=== PATIENT | female | born 1990 | race Caucasian/White ===

== ENCOUNTER 2017-01-05 20:50 | Day surgery (SDC) | payer OTHER ==
[2017-01-05 21:38] VITALS: BP 123/66; TEMP 97.9; BMI 46.3
[2017-01-05] MEDS ORDERED: Promethazine HCl 25 MG/ML VIAL IM PRN (21:56)
--- NOTE | 2017-01-06 00:14 | PRG ---
DATE OF SERVICE: 01/05/2017 TIME OF SERVICE: 2015 hours. PRESENTING COMPLAINT: Contractions, nausea, lower back pain at 38 weeks gestation. HISTORY OF PRESENT ILLNESS: Ms. Chatman is a 26-year-old 4, para 1 at 38 weeks gestation, wh o sees Dr. Thor Betts at [facility]'s [place]. She reports contractions. Denies rupture of membranes. Denies vaginal bleeding. Reports active fetus with somewhat decreased activity today. She reports that she has some mild lower back pain and had one episode of nausea and vomiting on the way up to labor and delivery. OB AND INSPECTOR BICYCLE HISTORY: Miscarriage x2, x1. PAST MEDICAL HISTORY: Significant for depression and morbid obesity. PAST SURGICAL HISTORY: Left knee tendon repair, arm surgery, and . SOCIAL HISTORY: The patient reports chewing tobacco use. ALLERGIES: DURICEF. MEDICATIONS: vitamins. OB LABS: O negative, antibody negative, Pap negative, rubella immune, VDRL nonreactive, hepatitis B, GC chlamydia negative, group B strep negative. PHYSICAL EXAMINATION: GENERAL: Morbidly obese white female, in no acute distress. VITAL SIGNS: Temperature 98.2, respirations 18, blood pressure 122/72. LUNGS: Clear to auscultation bilaterally. HEART: Regular rate and rhythm. She has no CVA tenderness. ABDOMEN: Soft and nontender, without rebound or guarding very large pendulous abdomen. PELVIC: Vulva is without lesions. Vagina is without discharge. Cervix was fingertip to one long an d high by nurse exam. EXTREMITIES: Without clubbing, cyanosis, or edema. heart rate was extraordinarily difficult to obtain due to the patient's morbidly obese abdomen. However, the nurse was able to keep heart rate continuously in place for approximately 10 min utes. It was reactive heart rate tracing, 130-140 baseline, positive accelerations, no decels, category 1 tracing. Tocometer revealed contractions approximately every 10-15 minutes. TREATMENT: The patient received Phenergan 25 mg IM x1 and was encouraged to increase p.o. hydration at home and to keep scheduled appointment including scheduled repeat in 7 days.
== END 2017-01-05 22:30 | disposition home or self-care (01) ==
LOC: L&D/OP 20:50
PROVIDERS: ATTEND Obstetrics & Gynecology
DX: O47.1 False labor at or after 37 completed weeks of gestation (principal); O99.213 Obesity complicating pregnancy, third trimester; E66.01 Morbid (severe) obesity due to excess calories; Z68.42 Body mass index [BMI] 45.0-49.9, adult; Z88.1 Allergy status to other antibiotic agents; Z91.018 Allergy to other foods; Z79.899 Other long term (current) drug therapy; Z98.891 History of uterine scar from previous surgery; Z3A.38 38 weeks gestation of pregnancy; Z87.891 Personal history of nicotine dependence
CPT/HCPCS: 96372; J2550

== ENCOUNTER 2017-01-12 05:31 | Inpatient (IN) | payer OTHER ==
--- NOTE | 2017-01-11 13:46 | PDOC.LDHP ---
Labor and Delivery H&P Chief complaint: scheduled section HPI: PT is here for scheduled repeat CS at 39 weeks. Current gestational age (weeks): 39 Due date: 01/18/17 Dating criteria: first trimester ultrasound Grav: 2 Para: 1 OB History Details: CS for NRFHT Current complications: none, other Abnormal US findings: No Past Medical History: morbid obesity Current medications: pre- vitamins Previous surgical history: low tranverse CS, other (knee surgery) Allergies/Adverse Reactions: Allergies Allergy/AdvReac Type Severity Reaction Status Date / Time coconut Allergy Severe Anaphylaxis Verified 01/05/17 21:24 tomato Allergy Severe Anaphylaxis Verified 01/05/17 21:24 cefadroxil Allergy Intermediate Rash Verified 12/18/16 16:23 Social history: tobacco use (chews tobacco, former smoker) - OB Labs Blood type: O RH: negative Antibody Screen: negative HIV: negative RPR: negative HEPSAg: negative 1 hour GCT: positive 3 hour GTT: negative GBS: negative Rubella: non-immune - Assessment L&D Assessment: scheduled repeat section - Plan Plan: admit to L&D, informed consent obtained, anesthesia consult for pain management
[2017-01-12] MEDS ORDERED: Promethazine HCl 25 MG/ML VIAL IM PRN ×3 (06:14→11:48)
[2017-01-12] MEDS ORDERED: Ondansetron HCl/PF 4 MG/2 ML Vial IVP PRN ×3 (06:14→11:48)
[2017-01-12] MEDS ORDERED: Bicitra 30 ML UDCUP PO SCH (06:14)
[2017-01-12] MEDS ORDERED: Gentamicin 120 MG/100 ML BAG IVPB SCH (06:14)
[2017-01-12 06:24] VITALS: BMI 47.1
[2017-01-12] MEDS ORDERED: Clindamycin/D5W 900 MG in Premix Bag 1 BAG IVPB SCH (06:30)
[2017-01-12 06:43] LABS: Hematocrit 29.5 % (36.0-47.0); Mean Platelet Volume 7.7 fL (7.4-10.4); Red Blood Cell (RBC) Count 4.08 mill/uL (4.20-5.40); White Blood Cell (WBC) Count 9.9 thou/uL (4.8-10.8)
[2017-01-12] MEDS ORDERED: Dexamethasone 4 mg/ml Vial ONE (07:19)
[2017-01-12] MEDS ORDERED: PHENYLEPHRINE-NS 100 MCG/ML 10 ML SYRINGE ONE ×2 (07:19→15:21)
[2017-01-12] MEDS ORDERED: Ketorolac Tromethamine 30 MG/ML VIAL ONE ×2 (07:19→15:21)
[2017-01-12] MEDS ORDERED: Oxytocin 10 UNITS/ML VIAL ONE (07:19)
[2017-01-12] MEDS ORDERED: ePHEDrine/0.9% NaCl/PF SYRINGE 50 mg/10 ml ONE (07:19)
[2017-01-12] MEDS ORDERED: Ondansetron HCl/PF 4 MG/2 ML Vial ONE ×2 (07:19→15:21)
[2017-01-12] MEDS ORDERED: Morphine PF 1 MG/ML SYR ONE (07:20)
[2017-01-12] MEDS: Lactated Ringer's 1,000 ML IV SCH ×2 (07:27→07:28)
[2017-01-12] MEDS ORDERED: Ropivacaine 0.2% 550 ML 750 ML NERVE BLCK SCH (07:45)
[2017-01-12] MEDS ORDERED: Lidocaine 2% PF 5 ML VIAL ONE (07:55)
[2017-01-12] MEDS ORDERED: Ropivacaine HCl/PF 750 ML in Premix Bag 1 BAG NERVE BLCK SCH (08:00)
[2017-01-12] MEDS ORDERED: Bupivacaine 0.25% HCL 30 ML VIAL ONE (08:21)
--- NOTE | 2017-01-12 08:50 | PDOC.OPDEL ---
OB Operative/Delivery Note Delivery Dr/Surgeon: Alpesh Assist: Winnie Pre-Delivery Diagnosis: scheduled section Procedure/Post Delivery Dx: repeat low transverse CS Weeks gestation: 39 - Findings A Sex: male Weight: 8 lb 8 oz - 1 min: 8 - 5 min: 9 - Additional Findings/Plan Placenta delivered: manual removal findings: low transverse hysterotomy without extension, normal uterus, normal tubes, normal ovaries Estimated blood loss: 600ml Compilations/Other Findings: placement of OnQ and Preveena Post delivery plan: routine recovery
[2017-01-12] MEDS ORDERED: Eucerin (Mineral Oil/Petrolatum,White) 30 gm Jar TOP PRN (09:44)
[2017-01-12] MEDS ORDERED: Naloxone HCl 0.4 mg/ml Vial IV PRN (09:44)
[2017-01-12] MEDS ORDERED: HYDROmorphone 2 MG/ML VIAL SLOW IVP PRN (09:44)
[2017-01-12] MEDS ORDERED: diphenhydrAMINE 50 MG/ML VIAL IVP PRN (09:44)
[2017-01-12] MEDS ORDERED: Meperidine HCl/PF 25 MG/ML VIAL SLOW IVP PRN (09:44)
[2017-01-12] MEDS ORDERED: Naloxone HCl 0.4 mg/ml Vial IVP PRN (09:44)
[2017-01-12] MEDS ORDERED: Communication Order-Pharmacy FS SCH (09:45)
--- NOTE | 2017-01-12 10:32 | OP ---
DATE OF PROCEDURE: 01/12/2017 PREOPERATIVE DIAGNOSES: 1. A 26-year-old G2, P1 at 31 weeks and 1 day. 2. Previous section, declines trial of labor. 3. Morbid obesity. POSTOPERATIVE DIAGNOSIS: G2, P2 delivered, status post repeat section. PROCEDURES PERFORMED: Repeat low transverse section, placement of ON-Q pump catheters and P revena incision dressing. SURGEON: Thor Betts D.O. PROFESSOR OF BIOCHEMISTRY: Radha Zhou M.D. ANESTHESIA: korin Jose. ESTIMATED BLOOD LOSS: 600 mL URINE OUTPUT: 170 mL COMPLICATIONS: None. INTRAOPERATIVE FINDINGS: 1. Morbid obesity. 2. Male , Apgars 8 and 9, weight 8 pounds 8 ounces to nursery. 3. Low transverse hysterotomy without extension. 4. Normal-appearing uterus, tubes, and ovaries bilaterally. 5. Surgical sites hemostatic. DESCRIPTION OF PROCEDURE: The patient was taken back to the OR with IV fluids running. Once she was in the OR, spinal anesthesia was placed. The patient was then placed in dorsal supine position with a left lateral tilt. Cortes catheter was placed using sterile technique and the abdomen was prepped and draped in normal fashion for section. Of note, the patient's pannus was elevated with t ape to assist in retraction prior to the abdominal prep. The surgeons were scrubbed in. The abdomen was tested and anesthesia was found to be adequate. A Pfannenstiel skin incision was made with the scalpel. The skin incision was carried down through the subcutaneous tissue until the fascia was pablo ched. Once the fascia was reached, it was incised in the midline and extended superior laterally usi ng curved Coffman scissors. Tarik clamps were placed on the superior border of the fascia, which was s harply and bluntly dissected off the rectus abdominis muscles. In similar fashion, Tarik clamps wer e placed at the inferior border of the fascia, which was dissected down towards the pubic symphysis. There was no adhesive disease noted. The peritoneum was bluntly entered and stretched laterally. A adrianna O retractor was placed into the peritoneal cavity for retraction, visualization and protection of the wound. A bladder flap was created using Metzenbaum scissors and the bladder was dissected hudson y from the planned hysterotomy site. A low transverse hysterotomy was made with the scalpel. Hyster otomy was bluntly entered and stretched superolaterally using Nelson maneuver. Clear fluid was noted. The infant was delivered through the hysterotomy without difficulty. The nose and mouth were suctio stefan. The cord was doubly clamped and cut, and the infant was handed off to special care nurses in at [facility]. Cord blood was collected. The placenta was delivered. Uterus was exteriorized, massaged to firm, and cleared of clot and debris with a clean, dry sponge. The hysterotomy was inspected with no extensions noted. The hysterotomy was closed with Monocryl suture in a running locked fashion. Once the hysterotomy was closed, it was irrigated as well as the pericolic gutters and suctioned dry and then inspected again with no areas of bleeding noted. The Chente O retractor was removed from th e abdominal cavity. The peritoneum was reapproximated with chromic suture. Next, the 2 ON-Q pump ca theters were placed through the skin, subcutaneous tissue and fascia and directed down towards the co rners of the incision. The catheters were placed between the rectus muscle and fascia. The fascia w as then closed with PDS suture from corner to corner and tied separately in the midline. The cathete rs were primed with Marcaine and fastened to the skin. The subcutaneous tissue was reapproximated wi plain gut suture. Any small areas of bleeding in the subcutaneous tissue were controlled with Bov ie cauterization. The skin was closed with 4-0 Monocryl. A Prevena prophylactic wound dressing was placed over the incision after the ON-Q catheter. The tips were dressed with Tegaderm. The Prevena was noted to be functioning properly at the end of the case. The uterus was massaged and noted to be firm. The patient was then cleaned, dried, taken to the recovery room in good condition.
[2017-01-12] MEDS ORDERED: diphenhydrAMINE 25 MG CAP PO PRN (11:48)
[2017-01-12] MEDS ORDERED: LR w/ Pitocin 40 units/1000 ML BAG IV SCH (11:48)
[2017-01-12] MEDS ORDERED: Measles/Mumps/Rubella 10 MCG/0.5 ML VIAL SC ONE (11:48)
[2017-01-12] MEDS ORDERED: Lactated Ringer's 1,000 ML IV SCH (11:48)
[2017-01-12] MEDS ORDERED: Bisacodyl 10 MG SUPP PR PRN (11:48)
[2017-01-12] MEDS ORDERED: Lanolin Ointment 7 GM TUBE TOP PRN (11:48)
[2017-01-12] MEDS ORDERED: Simethicone Chewable 80 MG TAB PO PRN (11:48)
[2017-01-12] MEDS: Prenatal Vitamin 1 TAB PO SCH (13:49)
[2017-01-12] MEDS: Docusate Calcium (SURFAK) 240 MG CAP PO SCH ×2 (13:49→22:05)
[2017-01-12] MEDS: Ferrous Sulfate 325 MG TAB PO SCH ×2 (13:49→22:23)
[2017-01-12] MEDS ORDERED: Dexamethasone 20 MG/5 ML VIAL ONE (15:21)
[2017-01-12] MEDS: Ibuprofen 800 MG TAB PO SCH ×2 (16:01→22:04)
[2017-01-12] MEDS ORDERED: Meperidine HCl/PF 25 MG/ML VIAL IM PRN (21:45)
[2017-01-13] MEDS: Acetaminophen/Codeine 30-300mg Tablet PO PRN ×3 (00:45→17:39)
[2017-01-13] MEDS ORDERED: Sodium Chloride 0.9% 10 ML ONE ×2 (01:02→05:51)
[2017-01-13] MEDS: Ibuprofen 800 MG TAB PO SCH ×3 (06:00→21:50)
[2017-01-13 06:23] LABS: Hematocrit 24.5 % (36.0-47.0); Mean Platelet Volume 7.6 fL (7.4-10.4); Red Blood Cell (RBC) Count 3.38 mill/uL (4.20-5.40)
--- NOTE | 2017-01-13 07:51 | PDOC.PP ---
Post Progress Note Post Day #: 1 Subjective: Reports pain controlled and feeling much better than last c/s. PO intake tolerated: yes Flatus: yes Ambulation: yes Vital Signs (12 hours) Temp Pulse Resp BP Pulse Ox 01/13/17 04:25 98.1 F 66 20 01/13/17 00:20 98.5 F 64 20 111/66 98 Weight Weight 319 lb - Physical Examination General: NAD Respiratory: non-labored breathing Abdominal: lochia, no distention, appropriately TTP Fundus firm & at: U-3 Extremities: negative homans (B) Skin: CS incision dry & intact, no rash Neurological: no gross focal deficits Psychiatric: A&Ox3, normal affect Result Diagrams: 01/13/17 05:38 Additional Labs: Post Labs Blood Type O NEGATIVE 01/12/17 06:29 Hep Bs Antigen Non-Reactive S/CO (NonReactive) 01/12/17 06:29 (1) Status post repeat low transverse section Code(s): Z98.891 - HISTORY OF UTERINE SCAR FROM PREVIOUS SURGERY Status: Acute (2) Morbid obesity Code(s): E66.01 - MORBID (SEVERE) OBESITY DUE TO EXCESS CALORIES Status: Acute - Assessment/Plan Cortes d/c'd. Tolerating regular diet. Continue routine postop care.
[2017-01-13] MEDS: Prenatal Vitamin 1 TAB PO SCH (08:42)
[2017-01-13] MEDS: Docusate Calcium (SURFAK) 240 MG CAP PO SCH ×2 (08:43→21:50)
[2017-01-13] MEDS: Ferrous Sulfate 325 MG TAB PO SCH ×2 (08:44→21:50)
[2017-01-14] MEDS: Ibuprofen 800 MG TAB PO SCH ×3 (06:08→22:00)
[2017-01-14] MEDS: Acetaminophen/Codeine 30-300mg Tablet PO PRN ×4 (06:10→22:00)
--- NOTE | 2017-01-14 06:13 | PDOC.PP ---
Post Progress Note Post Day #: 2 Subjective: Has abd pa8in this am. OnQ pump was leaking yesterday. PO intake tolerated: yes Flatus: yes Ambulation: yes Vital Signs (12 hours) Temp Pulse Resp BP 01/13/17 23:40 98.3 F 78 18 130/62 01/13/17 19:45 98.3 F 86 18 136/63 Weight Weight 319 lb - Physical Examination General: NAD Abdominal: no distention, appropriately TTP Deviation from normal: Wound vac in use Neurological: no gross focal deficits Psychiatric: A&Ox3 Result Diagrams: 01/13/17 05:38 Additional Labs: Post Labs Blood Type O NEGATIVE 01/12/17 06:29 Hep Bs Antigen Non-Reactive S/CO (NonReactive) 01/12/17 06:29 (1) Morbid obesity Code(s): E66.01 - MORBID (SEVERE) OBESITY DUE TO EXCESS CALORIES Status: Acute (2) Status post repeat low transverse section Code(s): Z98.891 - HISTORY OF UTERINE SCAR FROM PREVIOUS SURGERY Status: Acute - Assessment/Plan Postop day 2: 1. On Q pump leaking but dressing of the catheters is on the wound vac dressing..so cannot remove 2. I will see if wound care can see her today to help separate the dressing to remove the leaking catheters without disruption of wound vac 3. ambulate 4. SCDs in bed 5. Keep in house todaiy to monitor due to BMI co-morbidity
[2017-01-14] MEDS: Prenatal Vitamin 1 TAB PO SCH (09:31)
[2017-01-14] MEDS: Ferrous Sulfate 325 MG TAB PO SCH ×2 (09:31→22:00)
[2017-01-14] MEDS: Docusate Calcium (SURFAK) 240 MG CAP PO SCH ×2 (09:32→21:30)
[2017-01-15] MEDS: Ibuprofen 800 MG TAB PO SCH ×2 (05:27→14:30)
[2017-01-15 08:10] VITALS: BP 137/67; TEMP 98.1
[2017-01-15] MEDS: Prenatal Vitamin 1 TAB PO SCH (09:16)
[2017-01-15] MEDS: Ferrous Sulfate 325 MG TAB PO SCH (09:16)
[2017-01-15] MEDS: Docusate Calcium (SURFAK) 240 MG CAP PO SCH (09:16)
--- NOTE | 2017-01-15 09:27 | PDOC.PP ---
Post Progress Note Post Day #: 3 Subjective: doing well, no concerns, ambulating, adriana reg diet, pain controlled PO intake tolerated: yes Flatus: yes Ambulation: yes Vital Signs (12 hours) Temp Pulse Resp BP 01/15/17 08:09 98.1 F 76 20 137/67 Weight Weight 319 lb - Physical Examination General: NAD Respiratory: non-labored breathing Abdominal: no distention (NTTP) Fundus firm & at: below umb Extremities: negative homans (B) Skin: no rash (preveen on) Neurological: no gross focal deficits Psychiatric: A&Ox3, normal affect Result Diagrams: 01/13/17 05:38 Additional Labs: Post Labs Blood Type O NEGATIVE 01/12/17 06:29 Hep Bs Antigen Non-Reactive S/CO (NonReactive) 01/12/17 06:29 (1) Morbid obesity Code(s): E66.01 - MORBID (SEVERE) OBESITY DUE TO EXCESS CALORIES Status: Acute (2) Status post repeat low transverse section Code(s): Z98.891 - HISTORY OF UTERINE SCAR FROM PREVIOUS SURGERY Status: Acute - Assessment/Plan POD3 doing well, plan to DC home today. OnQ removed yesterday, Preveena on. FU this week for incision check and removal of Preveena in office.
[2017-01-15] MEDS: Acetaminophen/Codeine 30-300mg Tablet PO PRN (11:18)
== END 2017-01-15 15:30 | disposition home or self-care (01) | DRG 765 ==
LOC: L&D 05:31 → 3SW 11:12
PROVIDERS: ADMIT Obstetrics & Gynecology; ATTEND Obstetrics & Gynecology
PROC: 10D00Z1 Extraction of Products of Conception, Low, Open Approach (ICD-10-PCS; principal; 2017-01-12)
PROC: 0W9J00Z Drainage of Pelvic Cavity with Drainage Device, Open Approach (ICD-10-PCS; 2017-01-12)
DX: O99.214 Obesity complicating childbirth (principal); Z68.42 Body mass index [BMI] 45.0-49.9, adult; E66.01 Morbid (severe) obesity due to excess calories; Z37.0 Single live birth; Z3A.39 39 weeks gestation of pregnancy; O99.334 Smoking (tobacco) complicating childbirth; F17.220 Nicotine dependence, chewing tobacco, uncomplicated
CPT/HCPCS: 36415; 85027; 85461; 86780; 86850; 86900; 86901; 87340; 90384; 90707; 96372; A4216; J0131; J1100; J1580; J1885; J2001; J2274; J2405; J2590; J2795; J3490; S0020

== ENCOUNTER 2017-05-15 11:18 | Emergency (ER) | payer OTHER ==
[2017-05-15 12:15] LABS: #Eosinphils 0.2 thou/uL (0.0-0.7); #Lymphocytes 3.1 thou/uL (1.20-3.40); #Monocytes 0.7 thou/uL (0.11-0.59); #Neutrophils 4.8 thou/uL (1.40-6.50); %Basophils 0.5 % (0.0-1.0); %Eosinophils 2.7 % (0.0-10.0); %Lymphocytes 35.3 % (21.0-51.0); %Monocytes 7.5 % (0.0-10.0); Anisocytosis SLIGHT = 6-15 cells (100X) (0-5/hpf); Hemoglobin 11.8 g/dL (12.0-16.0); Hypochromia SLIGHT = 6-15 cells (100X) (0-5/hpf); MDiff Complete? YES; Mean Corpuscular HGB CONC 30.6 g/dL (32.0-36.0); Mean Corpuscular Hemoglobin 21.6 pg (27.0-31.0); Mean Corpuscular Volume 70.6 fl (81.0-99.0); Mean Platelet Volume 8.1 fL (7.4-10.4); Microcytosis SLIGHT = 6-15 cells (100X) (0-5/hpf); Platelet Count 397 thou/uL (130-400); RBC Distribution Width 15.6 % (11.5-14.5); Red Blood Cell (RBC) Count 5.45 mill/uL (4.20-5.40); White Blood Cell (WBC) Count 8.9 thou/uL (4.8-10.8)
[2017-05-15 12:21] LABS: BHCG - Serum Negative (NEGATIVE); Pregs Control Background? CLEAR/WHITE (CLR/WHITE); Pregs Control Bar Appear? YES (CONTROL BAR)
[2017-05-15 12:25] LABS: ALT (SGPT) 59 U/L (8-55); AST (SGOT) 33 U/L (5-34); Albumin 3.9 g/dL (3.5-5.0); Alkaline Phosphatase 77 U/L (40-150); Anion Gap 11 mmol/L (10-20); BUN (Urea Nitrogen) 7 mg/dL (7.0-18.7); Bilirubin, Total 0.4 mg/dL (0.2-1.2); Calc. Creatinine Clearance 0 mL/min (70-130); Calcium 9.1 mg/dL (7.8-10.44); Carbon Dioxide 21 mmol/L (22-29); Chloride 110 mmol/L (98-107); Estimated GFR-MDRD Greater than 90; Globulin 3.5 g/dL (2.4-3.5); Glucose 95 mg/dL (70-105); Lipase 20 U/L (8-78); Potassium 4.3 mmol/L (3.5-5.1); Protein, Total 7.4 g/dL (6.0-8.3); Sodium 138 mmol/L (136-145)
== END 2017-05-15 14:10 | disposition left against medical advice (07) ==
LOC: ERS 11:18
DX: Z53.21 Procedure and treatment not carried out due to patient leaving prior to being seen by health care provider (principal)
CPT/HCPCS: 36415; 80053; 82150; 83690; 84703; 85025

== ENCOUNTER 2017-05-15 18:21 | Emergency (ER) | payer OTHER ==
[2017-05-15] MEDS ORDERED: Morphine 4 MG/ML VIAL ONE (18:57)
[2017-05-15] MEDS ORDERED: Ondansetron HCl/PF 4 MG/2 ML Vial ONE (18:57)
[2017-05-15 18:59] LABS: #Basophils 0.1 thou/uL (0.0-0.2); #Eosinphils 0.4 thou/uL (0.0-0.7); #Lymphocytes 3.2 thou/uL (1.20-3.40); #Monocytes 0.8 thou/uL (0.11-0.59); #Neutrophils 5.4 thou/uL (1.40-6.50); %Basophils 0.8 % (0.0-1.0); %Eosinophils 3.7 % (0.0-10.0); %Lymphocytes 32.6 % (21.0-51.0); %Monocytes 7.9 % (0.0-10.0); Hemoglobin 11.3 g/dL (12.0-16.0); Mean Corpuscular HGB CONC 32.1 g/dL (32.0-36.0); Mean Corpuscular Hemoglobin 22.3 pg (27.0-31.0); Mean Corpuscular Volume 69.5 fl (81.0-99.0); Mean Platelet Volume 8.3 fL (7.4-10.4); Platelet Count 381 thou/uL (130-400); RBC Distribution Width 15.3 % (11.5-14.5); Red Blood Cell (RBC) Count 5.07 mill/uL (4.20-5.40); White Blood Cell (WBC) Count 9.8 thou/uL (4.8-10.8)
[2017-05-15 19:10] LABS: BHCG - Serum Negative (NEGATIVE); Pregs Control Background? CLEAR/WHITE (CLR/WHITE); Pregs Control Bar Appear? YES (CONTROL BAR)
[2017-05-15 19:19] LABS: ALT (SGPT) 57 U/L (8-55); AST (SGOT) 29 U/L (5-34); Albumin 3.8 g/dL (3.5-5.0); Alkaline Phosphatase 80 U/L (40-150); Anion Gap 11 mmol/L (10-20); BUN (Urea Nitrogen) 9 mg/dL (7.0-18.7); Bilirubin, Total 0.4 mg/dL (0.2-1.2); Calc. Creatinine Clearance 0 mL/min (70-130); Calcium 9.1 mg/dL (7.8-10.44); Carbon Dioxide 22 mmol/L (22-29); Chloride 111 mmol/L (98-107); Estimated GFR-MDRD 87; Globulin 3.4 g/dL (2.4-3.5); Glucose 96 mg/dL (70-105); Lipase 33 U/L (8-78); Potassium 3.8 mmol/L (3.5-5.1); Protein, Total 7.2 g/dL (6.0-8.3); Sodium 140 mmol/L (136-145)
[2017-05-15 20:27] LABS: Bilirubin Negative (Negative); Blood, Urine Moderate (Negative); Clarity CLEAR (Clear); Glucose, Urine (Dipstick) Negative (Negative); Leukocyte Small (Negative); Nitrite Negative (Negative); Protein, Urine (Dipstick) Negative (Neg-Trace); Specific Gravity, Urine 1.025 (1.002-1.036); pH, Urine 6.5 (5.0-9.0)
[2017-05-15 20:30] LABS: Bacteria/HPF 2+ HPF (None Seen); Hyaline Casts/LPF NONE SEEN LPF (0-3 Hyaline); RBC/HPF 0-3 HPF (0-3); Squamous Epithelial 0-3 HPF (0-3); WBC/HPF 0-3 HPF (0-3)
--- NOTE | 2017-05-15 20:39 | ULT ---
RIGHT UPPER QUADRANT ULTRASOUND: 05/15/17 HISTORY: Abdominal pain. Images of the gallbladder show numerous echogenic gallstones. Gallbladder wall thickness is normal. C ommon duct is upper normal caliber measured at 6 mm. The liver is unremarkable. The pancreas is obscured. Right kidney is unremarkable. Technologist marta cifuentes a negative Gomez's sign. IMPRESSION: Cholelithiasis. POS: [facility]
== END 2017-05-15 21:01 | disposition home or self-care (01) ==
LOC: ERS 18:21
DX: K80.20 Calculus of gallbladder without cholecystitis without obstruction (principal); N39.0 Urinary tract infection, site not specified; F32.9 Major depressive disorder, single episode, unspecified; F41.9 Anxiety disorder, unspecified; F17.220 Nicotine dependence, chewing tobacco, uncomplicated
CPT/HCPCS: 36415; 76705; 80053; 81003; 81015; 82150; 83690; 84703; 85025; 96361; 96374; 96375; J2270; J2405

== ENCOUNTER 2017-05-29 01:36 | Emergency (ER) | payer OTHER ==
--- NOTE | 2017-05-29 08:29 | RAD ---
PA AND LATERAL CHEST: History: Chest pain after trauma. FINDINGS: Heart size and mediastinum are within normal limits. The lungs are clear of infiltrates. No significa nt bony findings. IMPRESSION: No active intrathoracic disease. POS: [facility]
== END 2017-05-29 03:25 | disposition home or self-care (01) ==
LOC: ERS 01:36
DX: S20.211A Contusion of right front wall of thorax, initial encounter (principal); F41.9 Anxiety disorder, unspecified; F32.9 Major depressive disorder, single episode, unspecified; F17.220 Nicotine dependence, chewing tobacco, uncomplicated; Z71.6 Tobacco abuse counseling; Y04.0XXA Assault by unarmed brawl or fight, initial encounter
CPT/HCPCS: 71046; 99406

== ENCOUNTER 2017-06-07 21:19 | Emergency (ER) | payer OTHER ==
[2017-06-08 01:50] LABS: #Eosinphils 0.2 thou/uL (0.0-0.7); #Lymphocytes 3.4 thou/uL (1.20-3.40); #Monocytes 0.6 thou/uL (0.11-0.59); %Basophils 0.2 % (0.0-1.0); %Lymphocytes 37.2 % (21.0-51.0); %Monocytes 6.5 % (0.0-10.0); %Neutrophils 54.1 % (42.0-75.0); Hemoglobin 10.9 g/dL (12.0-16.0); Mean Corpuscular HGB CONC 33.1 g/dL (32.0-36.0); Mean Corpuscular Hemoglobin 22.3 pg (27.0-31.0); Mean Corpuscular Volume 67.2 fl (81.0-99.0); Mean Platelet Volume 7.4 fL (7.4-10.4); Platelet Count 405 thou/uL (130-400); RBC Distribution Width 15.1 % (11.5-14.5); Red Blood Cell (RBC) Count 4.91 mill/uL (4.20-5.40); White Blood Cell (WBC) Count 9.2 thou/uL (4.8-10.8)
[2017-06-08 01:57] LABS: BHCG - Serum Negative (NEGATIVE); Pregs Control Background? CLEAR/WHITE (CLR/WHITE); Pregs Control Bar Appear? YES (CONTROL BAR)
[2017-06-08] MEDS ORDERED: Acetaminophen 500 MG TAB ONE (02:05)
[2017-06-08 02:07] LABS: ALT (SGPT) 93 U/L (8-55); AST (SGOT) 41 U/L (5-34); Albumin 3.9 g/dL (3.5-5.0); Alkaline Phosphatase 89 U/L (40-150); Anion Gap 13 mmol/L (10-20); BUN (Urea Nitrogen) 9 mg/dL (7.0-18.7); Bilirubin, Total 0.4 mg/dL (0.2-1.2); Calc. Creatinine Clearance 0 mL/min (70-130); Calcium 9.4 mg/dL (7.8-10.44); Carbon Dioxide 23 mmol/L (22-29); Chloride 108 mmol/L (98-107); Estimated GFR-MDRD 90; Globulin 3.7 g/dL (2.4-3.5); Glucose 85 mg/dL (70-105); Potassium 3.9 mmol/L (3.5-5.1); Protein, Total 7.6 g/dL (6.0-8.3); Sodium 140 mmol/L (136-145)
[2017-06-08] MEDS ORDERED: Lidocaine 1% (PF) 30 ML VIAL ONE (02:47)
--- NOTE | 2017-06-08 09:14 | CT ---
PRELIMINARY REPORT/[facility]/EMERGENTY AFTER-HOURS PROCEDURE CT Head Without Intravenous Contrast EXAM DATE/TIME: Exam ordered 06/08/2017 1:45 AM CLINICAL HISTORY: 26 years old, female; Pain; Headache; Headache not specified; Patient HX: F 26 presents to ed with fr ontal DEL ANGEL that began with dizziness and nausea last night. Denies any trauma. Exacerbated by light. De nies any familial HX of aneurisms. Current chewing tobacco user. Took a tylenol machine captain, has had slight improvement since onset. Reports possibility of , had son on feb 01, has had some s potting since then and has been on bc, however she has not had a complete period. Last Tylenol was at 1900. TECHNIQUE: Axial computed tomography images of the head/brain without intravenous contrast. COMPARISON: No relevant prior studies available. FINDINGS: Brain: Unremarkable. No hemorrhage. No significant white matter disease. No edema. Ventricles: Unremarkable. No ventriculomegaly. Bones/joints: Unremarkable. No acute fracture. Soft tissues: Unremarkable. Sinuses: Unremarkable as visualized. No acute sinusitis. Mastoid air cells: Unremarkable as visualized. No mastoid effusion. IMPRESSION: Normal head/brain CT. Thank you for allowing us to participate in the care of your patient. Dictated and Authenticated by: Los Carrasco MD 06/08/2017 2:29 AM Central Time ([place] & [place]) FINAL REPORT BRAIN CT WITHOUT IV CONTRAST: EMERGENT AFTER HOURS EXAM TIME: 1:46 a.m. DATE: 06/08/17. FINDINGS: No focal mass or midline shift. No evidence of hemorrhage. IMPRESSION: No acute intracranial process. No mass or bleed. POS: [facility]
--- NOTE | 2017-06-08 09:34 | CT ---
PRELIMINARY REPORT/[facility]/EMERGENTY AFTER-HOURS PROCEDURE CT Angiography Head With Intravenous Contrast CLINICAL HISTORY: 26 years old, female; Pain; Headache; Patient HX: M 49 presents to ed with cp and dizziness that bega n yesterday morning. Pt reports that he had some difficulty speaking in the evening alongside dizzine ss and feelings of instability. Pt states that his last mi presented with similar symptoms 2 years ag o [place]. Speech and stability have improved, currently on anti-coags. Had 2 stents placed 2 ye ars ago. Apr 06 pt had stent replaced due to 100% occlusion. Nkma TECHNIQUE: Axial computed tomographic angiography images of the head with intravenous contrast using CT angiogra phy protocol. MIP reconstructed images were created and reviewed. Coronal and sagittal reformatted im ages were created and reviewed. COMPARISON: CT Brain WO Con 2017-06-08 01:45 FINDINGS: Right internal carotid artery: No acute findings. Intracranial segment is patent with no significant stenosis. No aneurysm. Right anterior cerebral artery: Unremarkable. No occlusion or significant stenosis. No aneurysm. Right middle cerebral artery: Unremarkable. No occlusion or significant stenosis. No aneurysm. Right posterior cerebral artery: Unremarkable. No occlusion or significant stenosis. No aneurysm. Right vertebral artery: Unremarkable as visualized. Left internal carotid artery: No acute findings. Intracranial segment is patent with no significant s tenosis. No aneurysm. Left anterior cerebral artery: Unremarkable. No occlusion or significant stenosis. No aneurysm. Left middle cerebral artery: Unremarkable. No occlusion or significant stenosis. No aneurysm. Left posterior cerebral artery: Unremarkable. No occlusion or significant stenosis. No aneurysm. Left vertebral artery: Unremarkable as visualized. Basilar artery: Unremarkable. No occlusion or significant stenosis. No aneurysm. IMPRESSION: Normal head CTA. Thank you for allowing us to participate in the care of your patient. Dictated and Authenticated by: Gonzalez Vivar MD 06/08/2017 5:30 AM Central Time ([place] & [place]) FINAL REPORT CTA BRAIN: Date: 06/08/17 HISTORY: 26-year-old female with history of headaches. Presents to the ER with chest pain and dizziness, which began yesterday morning. TECHNIQUE: Contrast enhanced CTA of the intracranial structures performed. 2D and 3D reconstructed images perfor med on an independent 3D workstation. FINDINGS: This is the final report. Preliminary exam was performed by [facility]. CTA brain demonstrates no evidence of occlusion seen. The visualized portions of the internal carotid arteries are unremarkable. The SHAKA, MCA, and EPIC CUPID ANALYST vessels are patent. Visualized portions of the dist al vertebral arteries are patent. The basilar artery and posterior circulation is unremarkable. IMPRESSION: Unremarkable intracranial CTA. POS: [facility]
== END 2017-06-08 05:45 | disposition home or self-care (01) ==
LOC: ERS 21:19
DX: R51 Headache (principal); D64.9 Anemia, unspecified; F41.9 Anxiety disorder, unspecified; F32.9 Major depressive disorder, single episode, unspecified; F17.220 Nicotine dependence, chewing tobacco, uncomplicated
CPT/HCPCS: 36415; 70450; 70496; 80053; 84703; 85025; 93005; J2001

== ENCOUNTER 2017-06-09 14:42 | Inpatient (IN) | payer OTHER ==
[2017-06-09 16:34] LABS: #Eosinphils 0.2 thou/uL (0.0-0.7); #Monocytes 0.7 thou/uL (0.11-0.59); #Neutrophils 4.9 thou/uL (1.40-6.50); %Basophils 0.2 % (0.0-1.0); %Eosinophils 1.9 % (0.0-10.0); %Lymphocytes 34.2 % (21.0-51.0); %Monocytes 7.6 % (0.0-10.0); %Neutrophils 56.1 % (42.0-75.0); Hemoglobin 11.1 g/dL (12.0-16.0); Mean Corpuscular HGB CONC 32.3 g/dL (32.0-36.0); Mean Corpuscular Hemoglobin 21.6 pg (27.0-31.0); Mean Platelet Volume 7.2 fL (7.4-10.4); Platelet Count 408 thou/uL (130-400); RBC Distribution Width 15.3 % (11.5-14.5); Red Blood Cell (RBC) Count 5.15 mill/uL (4.20-5.40); White Blood Cell (WBC) Count 8.7 thou/uL (4.8-10.8)
[2017-06-09] MEDS ORDERED: Ketorolac Tromethamine 30 MG/ML VIAL ONE ×2 (16:35→19:28)
[2017-06-09] MEDS ORDERED: Metoclopramide HCl 10 MG/2 ML VIAL ONE (16:35)
[2017-06-09] MEDS ORDERED: diphenhydrAMINE 50 MG/ML VIAL ONE (16:35)
[2017-06-09 16:55] LABS: ALT (SGPT) 76 U/L (8-55); AST (SGOT) 33 U/L (5-34); Alkaline Phosphatase 92 U/L (40-150); Anion Gap 12 mmol/L (10-20); BUN (Urea Nitrogen) 11 mg/dL (7.0-18.7); Bilirubin, Total 0.5 mg/dL (0.2-1.2); Calc. Creatinine Clearance 0 mL/min (70-130); Calcium 9.7 mg/dL (7.8-10.44); Carbon Dioxide 23 mmol/L (22-29); Chloride 108 mmol/L (98-107); Estimated GFR-MDRD 87; Globulin 3.7 g/dL (2.4-3.5); Glucose 84 mg/dL (70-105); Magnesium 1.9 mg/dL (1.6-2.6); Potassium 4.4 mmol/L (3.5-5.1); Protein, Total 7.7 g/dL (6.0-8.3); Sodium 139 mmol/L (136-145)
[2017-06-09 17:00] LABS: CKMB 0.3 ng/mL (0-6.6); Troponin I Less than 0.010 ng/mL (< 0.028)
[2017-06-09 18:37] LABS: Bilirubin Negative (Negative); Blood, Urine Large (Negative); Clarity CLEAR (Clear); Glucose, Urine (Dipstick) Negative (Negative); Leukocyte Negative (Negative); Nitrite Negative (Negative); Protein, Urine (Dipstick) Negative (Neg-Trace); Urobilinogen 0.2 mg/dL (0.2-1.0)
[2017-06-09 18:41] LABS: Bacteria/HPF None Seen HPF (None Seen); Hyaline Casts/LPF 0-3 HYALINE CAST LPF (0-3 Hyaline); Pathc Cast-AUWi Flag 0.43 (0-2.49); RBC/HPF GREATER THAN 50-TNTC HPF (0-3); Squamous Epithelial 0-3 HPF (0-3); WBC/HPF 0-3 HPF (0-3)
[2017-06-09] MEDS ORDERED: Acetaminophen 500 MG TAB ONE (19:28)
[2017-06-09] MEDS ORDERED: Fentanyl 100 MCG/2 ML VIAL ONE (21:22)
[2017-06-09 21:51] LABS: Tube # 2; Unspun CSF Color RED (Colorless)
[2017-06-09 21:52] LABS: Color Of CSF Supernatant COLORLESS (Colorless)
[2017-06-09 22:31] LABS: CSF Source CSF; Clarity Cloudy/Turbid (Clear); Tube # 4
[2017-06-09 22:37] LABS: WBC/NonHematics Count - Manual 34 /cumm (0-5)
[2017-06-09 22:43] LABS: CSF Source CSF
[2017-06-09 22:44] LABS: Clarity Cloudy/Turbid (Clear); Tube # 1
[2017-06-09 22:47] LABS: WBC/NonHematics Count - Manual 9 /cumm (0-5)
[2017-06-09 22:52] LABS: CSF, Glucose 53 mg/dl (40-70)
[2017-06-09 22:57] LABS: CSF, Protein 70 mg/dL (15-40)
[2017-06-10 01:34] LABS: Lymphocytes 40 %; Segmented Neutrophils 60 %
[2017-06-10] MEDS ORDERED: AcetaZOLAMIDE 250 MG TAB PO SCH ×2 (01:45→09:00)
[2017-06-10] MEDS ORDERED: Acyclovir Sodium 1,000 MG in Sodium Chloride 0.9% 250 ML 250 ML IVPB SCH (01:45)
[2017-06-10] MEDS ORDERED: Meropenem 2 GM in Sodium Chloride 0.9% 100 ML IVPB SCH (01:45)
[2017-06-10 03:22] VITALS: BMI 43.5
[2017-06-10] MEDS ORDERED: HYDROcodone/Acetaminophen 5/325 mg Tablet PO PRN ×3 (03:22→16:31)
[2017-06-10] MEDS ORDERED: Acetaminophen 325 MG TAB PO PRN ×2 (03:22→16:31)
--- NOTE | 2017-06-10 04:54 | HP ---
PRIMARY CARE PHYSICIAN: Patient has no PCP. CHIEF COMPLAINT: Headache. HISTORY OF PRESENT ILLNESS: Patient is a 26-year-old female who initially presented to the hospital a couple of days ago with complaints of headache. Patient underwent a CT head, which indicated no ac cabazon intracranial process was noted. She also had a CT angio, which indicated no acute abnormalities, normal. She was sent home; however, she presents back to the hospital with complaints of headache. Initially during her last visit, an LP was attempted, however, due to her body habitus and was unsuc cessful. At this time, when she presented to the hospital, she did undergo an LP. Patient currently denies any neck discomfort, however, she has neck pain after the LP. She denies any fevers or chill s, any nausea, vomiting, or diarrhea. She denies any photophobia either. She just said she has a si gnificant headache around her frontal area. Patient also takes control medication. She does n ot recall the name of her medication, but she does take control pills. PAST MEDICAL HISTORY: History of gallstones. PAST SURGICAL HISTORY: She had x2. She has had orthopedic surgery of her right arm, left knee. SOCIAL HISTORY: She denies any smoking; however, she chews tobacco or dips tobacco and drinks alcoho l socially. MEDICATIONS: She takes control. ALLERGIES: She is allergic to ADHESIVE BANDAGE, CEFADROXIL, COCONUT, and TOMATO. PHYSICAL EXAMINATION: VITAL SIGNS: In the ER, temperature is 98.6, 97% on room air, 68, 18, 110/74. GENERAL: Patient is awake, alert, oriented x3, does not appear in any distress. Patient is morbidly obese. HEENT: Normocephalic, atraumatic. No lymphadenopathy noted. NECK: No neck tenderness noted. Patient had good range of motion of her neck. She is complaining o f her LP site. CARDIOVASCULAR: S1, S2 present. No murmurs, rubs, or gallops. LUNGS: Clear to auscultation, rhonchi, or wheezes noted. ABDOMEN: Obese. Bowel sounds are present x2. No pain upon palpation. EXTREMITIES: Lower extremity, no edema. Pulses are present. LABORATORY DATA: WBCs of 8.7, hemoglobin of 11.1, hematocrit of 34.5, platelets of 404, as I mention ed her WBC is normal. Chemistry: Sodium of 139, potassium of 4.4, BUN of 11, creatinine 0.80. Her ALT is mildly elevated at 76, AST is normal. Troponin x1 is negative. Her test was negati ve. She did have an LP, which indicated tooth #1 was red, cloudy, turbid. WBCs were 9, 60% of that were neutrophils, lymphocytes were 40%. The second teeth #4 had 34 WBCs and had no neutrophils. Pro tein was mildly elevated. Glucose was normal. ASSESSMENT AND PLAN: Patient is a 26-year-old female who comes to the hospital with complaints of he adache. 1. Headache. This could be secondary to possible venous thrombosis versus meningitis; however, unli hardeep versus pseudotumor cerebri. We will start patient on some empiric antibiotics given the fact th at she did have 60 neutrophils, which seemed to be a little bit elevated. Neurology has been consult ed. Per ER physician, no papilledema was noted. This CSF opening pressure was elevated. We will ge t an MRV possible in a.m. to rule out cerebral venous thrombosis or probably on Sunday. 2. Morbid obesity. Patient educated on weight loss and exercise. 3. Chewing tobacco. Advise patient against chewing or dipping tobacco. 4. Deep venous thrombosis prophylaxis. We will put patient on sequential compression devices.
[2017-06-10 05:32] LABS: HBSAg Index 0.22 S/CO (0-0.99); Hep A IgM AB Non-Reactive (NonReactive); Hep A IgM S/CO 0.09 S/CO (0-0.79); Hep B Surf Ag Non-Reactive S/CO (NonReactive); Hep C IgG Ab Non-Reactive (NonReactive); Hep C Index 0.25 S/CO (0-0.79); Hepatitis B Core IGM Abs Non-Reactive (NonReactive)
[2017-06-10] MEDS: Sodium Chloride 0.45% 1,000 ML IV SCH ×2 (06:12→11:18)
[2017-06-10] MEDS: Meropenem 2 GM in Sodium Chloride 0.9% 100 ML IVPB SCH ×3 (06:13→20:31)
[2017-06-10] MEDS ORDERED: Vancomycin HCl 750 MG in Sodium Chloride 0.9% 250 ML 250 ML IVPB SCH (09:00)
[2017-06-10] MEDS ORDERED: SODIUM CHLORIDE 0.9% IVPB SCH (10:00)
[2017-06-10] MEDS ORDERED: ACYCLOVIR SODIUM IVPB SCH (10:00)
[2017-06-10] MEDS: Acyclovir Sodium 660 MG in Sodium Chloride 0.9% 100 ML IVPB SCH ×2 (11:20→20:30)
[2017-06-10] MEDS ORDERED: ALPRAZolam 1 MG TAB PO SCH (22:15)
--- NOTE | 2017-06-10 23:57 | RAD ---
PORTABLE CHEST ONE VIEW: Date: 06-10-17 Time: 11:09 p.m. History: Central line placement. FINDINGS: There is a right internal jugular central line and venous catheter with tip in the projection of the SVC. The heart size is normal. The lungs are expanded without focal areas of consolidation, pneumotho rax or pleural effusions. IMPRESSION: No acute process. POS: [facility]
--- NOTE | 2017-06-11 00:30 | PDOC.EVN ---
Event Note - Event Note Event Note: I was present for adn supervised a Right IJ CVC placement. See Resident note for details. No Complications. CXR confirmed placement and absence of pneumothorax.
[2017-06-11] MEDS: Acyclovir Sodium 660 MG in Sodium Chloride 0.9% 100 ML IVPB SCH ×3 (01:42→18:14)
[2017-06-11] MEDS: Meropenem 2 GM in Sodium Chloride 0.9% 100 ML IVPB SCH ×3 (05:42→21:08)
[2017-06-11 07:57] LABS: #Eosinphils 0.3 thou/uL (0.0-0.7); #Monocytes 0.5 thou/uL (0.11-0.59); #Neutrophils 4.5 thou/uL (1.40-6.50); %Basophils 0.2 % (0.0-1.0); %Eosinophils 4.1 % (0.0-10.0); %Lymphocytes 35.9 % (21.0-51.0); %Monocytes 5.6 % (0.0-10.0); %Neutrophils 54.2 % (42.0-75.0); Hemoglobin 11.1 g/dL (12.0-16.0); Mean Corpuscular HGB CONC 32.6 g/dL (32.0-36.0); Mean Corpuscular Hemoglobin 22.1 pg (27.0-31.0); Mean Corpuscular Volume 67.6 fl (81.0-99.0); Mean Platelet Volume 7.6 fL (7.4-10.4); Platelet Count 396 thou/uL (130-400); RBC Distribution Width 15.5 % (11.5-14.5); Red Blood Cell (RBC) Count 5.04 mill/uL (4.20-5.40); White Blood Cell (WBC) Count 8.2 thou/uL (4.8-10.8)
--- NOTE | 2017-06-11 08:15 | PDOC.EVN ---
Event Note - Event Note Event Note: Date: 06/10/17 Time: 23:00 Indication: Intravenous access Resident: Krzysztof Rose Attending: Eron A time-out was completed verifying correct patient, procedure, site, positioning , and special equipment if applicable. The patient was placed in a dependent position appropriate for central line placement based on the vein to be cannulated. The patients right neck was prepped and draped in sterile fashion. 1 % Lidocaine was used to anesthetize the surrounding skin area. A triple lumen 9- Telugu Cordis catheter was introduced into the the internal jugular using the Seldinger technique and under ultrasound guidance. The catheter was threaded smoothly over the guide wire and appropriate blood return was obtained. Each lumen of the catheter was evacuated of air and flushed with sterile saline. The catheter was then sutured in place to the skin and a sterile dressing applied. Perfusion to the extremity distal to the point of catheter insertion was checked and found to be adequate. Dr. Littlejohn was present for the entire procedure. Estimated Blood Loss: 10 ml The patient tolerated the procedure well and there were no complications. Post Op CXR shows appropriate positioning and no pneumothorax.
[2017-06-11 08:18] LABS: Anion Gap 8 mmol/L (10-20); BUN (Urea Nitrogen) 10 mg/dL (7.0-18.7); Calc. Creatinine Clearance 233 mL/min (70-130); Carbon Dioxide 18 mmol/L (22-29); Chloride 113 mmol/L (98-107); Estimated GFR-MDRD 90; Glucose 75 mg/dL (70-105); Potassium 3.9 mmol/L (3.5-5.1); Sodium 135 mmol/L (136-145)
[2017-06-11 08:22] LABS: Vancomycin, Trough 30.7 ug/mL
--- NOTE | 2017-06-11 11:15 | PDOC.PN ---
- Subjective Encounter Start Date: 06/11/17 Encounter Start Time: 11:13 Patient seen and examined, continues to have headaches in the left frontal lobe and frontal lobe area. No other issues, all questions answered. - Objective Resuscitation Status: Resuscitation Status FULL:Full Resuscitation Vital Signs & Weight: Vital Signs (12 hours) Temp Pulse Resp BP Pulse Ox 06/11/17 08:00 98.8 F 69 18 98 06/11/17 07:27 98.8 F 69 18 105/70 98 Weight Weight 295 lb Result Diagrams: 06/11/17 07:45 06/11/17 07:45 Phys Exam - Physical Examination Constitutional: NAD HEENT: PERRLA, moist MMs, sclera anicteric Neck: no nodes, no JVD, supple Respiratory: no wheezing, no rales, no rhonchi Cardiovascular: RRR, no significant murmur, no rub Gastrointestinal: soft, non-tender, no distention Musculoskeletal: no edema, pulses present Neurological: non-focal, normal sensation Dx/Plan (1) Headache Code(s): R51 - HEADACHE Status: Acute (2) Meningitis Code(s): G03.9 - MENINGITIS, UNSPECIFIED Status: Acute (3) Morbid obesity Code(s): E66.01 - MORBID (SEVERE) OBESITY DUE TO EXCESS CALORIES Status: Acute - Plan * patient on abx, merrem + vanc, vanc to be held given high levels, will repeat random level in AM and dose vanc according to level * blood cultures positive for gram +, on vanc, will repeat BCx in AM * neurology and neuroSx following, await input * continue current plan of care * case and plan d/w patient at length, she understands and agrees with above plan
[2017-06-11] MEDS: HYDROcodone/Acetaminophen 5/325 mg Tablet PO PRN (14:36)
--- NOTE | 2017-06-11 22:41 | CON ---
DATE OF CONSULTATION: 06/10/2017 CONSULTING PHYSICIAN: Hospital Service. IMPRESSION: 1. Probable migraine. 2. Questionable pseudotumor cerebri. PLAN: 1. Maxalt 10 mg as needed for headache. 2. Office followup. HISTORY OF PRESENT ILLNESS: Ms. Chatman is a 26-year-old obese young woman who had presented with co mplaints of headache over the last few days. Initially, the headache came on quite quickly and was a ssociated with light sensitivity, nausea, and dizziness, and came to the ER and was evaluated. She h ad a CT of the brain and CTA which were both unremarkable. She was treated and her headache resolved . She was told that if the headache came back, she would need to come back to the hospital. She cam e back in yesterday with recurrent headaches. She underwent a lumbar puncture, which reportedly show ed somewhat elevated opening pressure. Her CSF was consistent with a bloody tap. She was started on Diamox and her headache is diminished significantly. She reports a low-grade left frontal hea dache today. She is not having any vision disturbance. She reports having severe headaches when she was younger, often times incapacitated with pain and nausea. She had been headache free for s everal years prior to the onset of these. PAST HISTORY: Otherwise negative. ALLERGIES: None reported. SOCIAL HISTORY: No tobacco or alcohol use. FAMILY HISTORY: Negative for migraines. MEDICATIONS: None. REVIEW OF SYSTEMS: Otherwise negative. PHYSICAL EXAMINATION" GENERAL: She is an obese young woman, sitting up in bed, in no distress. VITAL SIGNS: Have been stable. She is afebrile. HEENT: Pupils are equal and reactive. Conjunctiva clear. NECK: Supple. NEUROLOGIC: She is alert and appropriate. Her speech is fluent and clear. Her exam is nonfocal. SUMMARY: This is a young woman with abrupt onset of headache with migrainous features, which would n ot be typical of pseudotumor. I will be happy to follow up with her as an outpatient to determine if there is any evidence of papilledema and need for continued treatment with Diamox. We would suggest giving her the Maxalt to use as needed for the time being.
--- NOTE | 2017-06-12 00:08 | PRG ---
DATE OF SERVICE: 06/10/2017 This is a 30 minutes initial hospital visit note in which 30 minutes were spent in review of the imag ing record, evaluation and examination of the patient, and formulation of plan. Greater than 50% vania e was spent in counseling on Cris Chatman. CHIEF COMPLAINT: Headache with chills and elevated white blood cell count and opening pressure on sp inal tap. HISTORY OF PRESENT ILLNESS: Ms. Chatman is a 26-year-old obese female. She has a 2-day history of h eadache, chills and photophobia. Head CT was done, which demonstrated no evidence of acute process a nd even her CT angiogram was negative for vascular abnormality. The lumbar puncture was also done, w hich demonstrated an elevated opening pressure by report of 35 and evidence of bloody CSF. It is unc lear to me whether this was a traumatic tap and it is my understanding that there was some difficulty getting an adequate sample given the patient's body habitus. She does have elevated white blood gui ls both on the Gram stain of her CSF and in the CSF assessment, and has been initiated on acyclovir a nd antibiotics. PHYSICAL EXAMINATION: On exam, the patient has mild nuchal rigidity and photophobia. She has a mild ly positive Brudzinski's sign, but negative Kernig's sign. She follows commands in all 4 extremities . She has intact vision to confrontation, and on evaluation by the Emergency Medicine Team, she had no evidence of papilledema. IMPRESSION AND PLAN: My suspicion here is not pseudotumor while she fits a body habitus her clinical presentation is more of one of meningitis. Given her cerebrospinal fluid finding, certainly the ope izaiah pressure can be elevated anyway in morbidly obese patients, but also in the presence of meningit is, typically patients with pseudotumor do not present like this patient has over the last couple day s. An MRI was attempted, but the patient did not fit in the scanner. I do not think it is necessary to pursue MRI. Frankly, I think the Diamox can be stopped as well. It is my suspicion for this pat ient is likely meningitis and she would best benefit from antibiotics and hydration, I discussed this with the patient. I do not think it is necessary to pursue MRI at this time. visual changes in which the patient denies more of an obvious clinical prodrome consistent with pseudotumor. I did not it is necessary to pursue neurosurgical followup. I would recommend continued treatment fo r meningitis. DIAGNOSES: 1. Concern of meningitis. 2. Obesity.
[2017-06-12] MEDS: Acyclovir Sodium 660 MG in Sodium Chloride 0.9% 100 ML IVPB SCH ×3 (02:14→18:26)
[2017-06-12] MEDS: Meropenem 2 GM in Sodium Chloride 0.9% 100 ML IVPB SCH ×3 (05:22→22:16)
[2017-06-12 06:55] LABS: Vancomycin, Random 3.8 ug/mL (See Comment)
[2017-06-12] MEDS: HYDROcodone/Acetaminophen 5/325 mg Tablet PO PRN ×2 (10:02→16:56)
--- NOTE | 2017-06-12 12:03 | PDOC.PN ---
- Subjective Encounter Start Date: 06/12/17 Encounter Start Time: 12:01 Patient seen and examined, stats she feels a bit better but not back to baseline. All questions answered, no family at bedside. - Objective Resuscitation Status: Resuscitation Status FULL:Full Resuscitation Vital Signs & Weight: Vital Signs (12 hours) Temp Pulse Resp BP BP Pulse Ox 06/12/17 11:00 98.6 F 72 14 128/82 99 06/12/17 07:22 98.5 F 63 18 93/63 100 06/12/17 07:09 98.9 F 65 20 06/12/17 04:00 98.9 F 65 20 106/75 99 Weight Weight 295 lb I&O: 06/11/17 06/12/17 06/13/17 06:59 06:59 06:59 Intake Total 2230 Balance 2230 Result Diagrams: 06/11/17 07:45 06/11/17 07:45 Phys Exam - Physical Examination Constitutional: NAD obease HEENT: PERRLA, moist MMs, sclera anicteric Neck: no nodes, no JVD, supple Respiratory: no wheezing, no rales, no rhonchi Cardiovascular: RRR, no significant murmur, no rub Gastrointestinal: soft, non-tender, no distention Musculoskeletal: no edema, pulses present Neurological: non-focal, normal sensation Psychiatric: normal affect, A&O x 3 Dx/Plan (1) Headache Code(s): R51 - HEADACHE Status: Acute (2) Meningitis Code(s): G03.9 - MENINGITIS, UNSPECIFIED Status: Acute (3) Morbid obesity Code(s): E66.01 - MORBID (SEVERE) OBESITY DUE TO EXCESS CALORIES Status: Acute - Plan * vanc level at 3 today, was 30 yesterday, will give a 1.5g IV x 1 dose today, repeat level in AM * cont current plan of care for now * gram positive on culture, C&S pending, cont abx broad spectrum * symptomatic improvement noted * neuro and neurosx following * case and plan d/w patient at length, she understands and agrees with this plan
[2017-06-12] MEDS ORDERED: Vancomycin HCl 1.5 GM in Sodium Chloride 0.9% 250 ML 300 ML IVPB SCH (12:30)
--- NOTE | 2017-06-12 14:16 | PQF ---
CLINICAL DOCUMENTATION IMPROVEMENT CLARIFICATION FORM: ICD-10 Updated PLEASE DO AN ADDENDUM TO THE PROGRESS NOTE WITH ANY DOCUMENTATION UPDATES OR ADDITIONS AND CARRY THROUGH TO DC SUMMARY. THANK YOU. DATE: 06/12/17 ATTN: Dr. Cervantes Please exercise your independent, professional judgment in responding to the clarification form. Clinical indicators are provided on the bottom of this form for your review Please check appropriate box(s): [ x ] Bacterial Meningitis [ x ] Acute [ ] Chronic [ x ] Specify organism (i.e. gram negative, staph, strep, e coli, etc.)___culture not grown yet, unknown [ ] Due to (please specify cause) [ ] Viral Meningitis- [ ] Acute [ ] Chronic [ ] Specify organism (i.e. adenovirus, enterovirus, measles, etc.) ___ [ ] Encephalitis [ ] Acute [ ] Chronic [ ] Other diagnosis [ ] Unable to determine In addition, please specify: Present on Admission (POA): [ ] Yes [ ] No [ ] Unable to determine For continuity of documentation, please document condition throughout progress notes and discharge summary. Thank You. CLINICAL INDICATORS - SIGNS / SYMPTOMS / LABS H&P: WBCS 9, 60% OF THAT WERE NEUTROPHILS, LYMPHOCYTES WERE 40% HEADACHE PN 06/11: MENINGITIS, UNSPECIFIED. ACUTE BLOOD CULTURES POSITIVE FOR GRAM + NEURO SURGEON PN 06/10: ON EXAM, PT HAS MILD NUCHAL RIGIDITY & PHOTOPHOBIA. MILDLY POSITIVE BRUDZINSKI'S SIGN, BUT NEGATIVE KERNIG'S SIGN. IT IS MY SUSPICION FOR THIS PT IS LIKELY MENINGITIS & SHE WOULD BEST BENEFIT FROM ANTIBIOTICS & HYDRATION RISKS: H&P: AGE 26 YO. HEADACHE. THE CSF OPENING PRESSURE WAS ELEVATED TREATMENTS: NEUROLOGY CONSULT CPOE 06/10: ACYCLOVIR SODIUM 660 MG IV CPOE 06/10: MEROPENEM 2 GM IV Q 8 HR CPOE 06/12: VANCOMYCIN 1.5GM IV NOW Thank you, Kenzie (This form is maintained as a part of the permanent medical record) 2015 [employer]. All Rights Reserved Kenzie Sylvester RN, BSN [email or web address] Office: [phone] [facility]
[2017-06-12] MEDS ORDERED: diphenhydrAMINE 25 MG CAP PO PRN (21:16)
[2017-06-13] MEDS: Acyclovir Sodium 660 MG in Sodium Chloride 0.9% 100 ML IVPB SCH ×2 (01:49→10:09)
[2017-06-13] MEDS: Meropenem 2 GM in Sodium Chloride 0.9% 100 ML IVPB SCH ×2 (05:36→15:12)
[2017-06-13] MEDS: HYDROcodone/Acetaminophen 5/325 mg Tablet PO PRN ×2 (10:11→15:13)
[2017-06-13 12:49] VITALS: BP 111/75; TEMP 98.1
--- NOTE | 2017-06-13 12:58 | CON ---
DATE OF CONSULTATION: 06/13/2017 CONSULTING PHYSICIAN: Dr. Kali Salazar CHIEF COMPLAINT: Vaginal bleeding. HISTORY OF PRESENT ILLNESS: This is a 26-year-old who is status post a C- section 5 months ago. She reports that she has been bleeding ever since and has been seen in the office for this. She was put on control pills which decreased her bleeding to spotting daily, but never stopped completely. When she was admitted to the hospital here, she stopped taking her control pills and started bleeding heavily requiring her to change the pad 3 times a day. She does have associated dull, constant lower abdominal pain, but does not feel that it is crampy. She was admitted for headache for which she is being treated. Other than her complaints associated with her admission, review of systems is negative for head, eyes, ears, nose, throat, cardiovascular, respiratory, GI, , neuro, psych, musculoskeletal, skin or constitutional symptoms other than mentioned above. PAST MEDICAL HISTORY: Obesity. PAST SURGICAL HISTORY: 1. x2. 2. Knee surgery. 3. Tooth extraction. 4. Arm surgery. SOCIAL HISTORY: Positive for dipping tobacco and social alcohol use. Negative for smoking or drug abuse. MEDICATIONS: control pills. ALLERGIES: CEFADROXIL causes a rash. FAMILY HISTORY: Denies any history of breast, ovary, uterine or colon cancer. PHYSICAL EXAMINATION: VITAL SIGNS: Blood pressure 113/70, pulse 75, respiratory rate 16, temperature 98.4, O2 saturation 99% on room air. GENERAL: Awake, alert, in no acute distress, appears comfortable. ABDOMEN: Obese, soft, minimally tender to palpation in the lower abdomen. No guarding or rebound. No masses palpable. Exam limited due to body habitus. PELVIC: Deferred at this time. EXTREMITIES: Mild pedal edema. ASSESSMENT AND PLAN: A 26-year-old , 5 months with vaginal bleeding. It sounds like this was fairly well controlled with her control pills and she is likely having a withdrawal bleed after stopping her control pills when she was admitted to the hospital. I will get a pelvic ultrasound, but would recommend restarting her control pills if there is no contraindication from her headache pathology. She may follow up outpatient at [facility]'s [place] where she is seen regularly for other control options if needed. Thank you very much for this consultation. I will follow up the pelvic ultrasound results and make recommendations if needed. Please let me know if you have any other questions. YAMILKA
--- NOTE | 2017-06-13 15:31 | ULT ---
PELVIC ULTRASOUND: (transabdominal, transvaginal, jennings scale, color flow, and spectral Doppler) HISTORY: Abnormal bleeding status post section 5 months ago. FINDINGS: The uterus measures 9.6 x 5.4 x 5 cm without focal mass or endometrial fluid. The endometrium measur es 5 mm in thickness. The right ovary is not visualized. The left ovary measures 3.1 x 2.3 x 2 cm. Flow is not demonstrat ed to the left ovary likely due to posterior location. No adnexal masses are identified. No free fl uid is seen. IMPRESSION: No definite evidence of mass. POS: [facility]
--- NOTE | 2017-06-13 16:13 | DIS ---
DATE OF ADMISSION: 06/10/2017 DATE OF DISCHARGE: 06/13/2017 PRIMARY CARE PHYSICIAN: None. DISCHARGE DIAGNOSES: 1. Nonbacterial meningitis, likely viral. 2. Intractable headache. 3. Menorrhagia. 4. Severe obesity. CONSULTATIONS: 1. Luz Elena Degroot with [facility], 06/13/2017. 2. Neurology, Dr. Jose Raul Harris, 06/11/2017. 3. Hola Gomez with Neurosurgery, 06/11/2017. PROCEDURES: Pelvic and transvaginal ultrasound on 06/13/2017, results currently pending. HISTORY AND PHYSICAL: Ms. Chatman is a 26-year-old female with history of severe obesity and gallsto kelly who presents to the emergency department for evaluation of headache. CT of the brain and CT angiogram were done in the emergency department were unremarkable and she was sent home. She returns for continued headache and even though her last LP was unsuccessful, they did reattempt. LP was significant for a white blood cell count as high as 34 with 60% neutrophils and 40% lymphocyt es, slightly elevated protein, normal glucose. We were subsequently called for admission for meningi tis. The patient was seen and examined by Dr. Avendaño and placed as an inpatient. She was started on empir ic antibiotics due to possible venous thrombosis. Neurology was consulted. The patient was seen by Dr. Harris who felt this was most likely migraine variant of a possible pseu dotumor cerebri. Neurosurgical consultation was requested. The patient was seen by Case Bishop and then by Hola Gomez who felt that was actually more menin gitic in nature and recommended treating with antibiotics and follow up. They plan no intervention. From 06/10/2017 to 06/11/2017, the patient's headache improved; by 06/12/2017, she was improved even more, but started developing some vaginal bleeding. On 06/13/2017, her headache had completely resol albert. The patient was seen by [facility] who recommended placing her back onto her normal oral contracept sridhar that are used to control her menorrhagia and otherwise cleared her for outpatient followup for r esults of her transvaginal ultrasound. Patient was discharged home in stable condition with outpatient followup. PHYSICAL EXAMINATION: The patient was seen and examined on the day of discharge. Discharge plan and disposition were discussed with the patient face to face at the bedside. DISCHARGE MEDICATIONS: Resume her regular oral contraceptives. DISCHARGE CONDITION: Stable. DISPOSITION: Discharged home via private vehicle. DISCHARGE DIET: Heart healthy, calorie-restricted diet recommended. DISCHARGE ACTIVITY: As tolerated. FOLLOWUP APPOINTMENTS 1. Establish with PCP. 2. Follow up with Dr. Degroot per her clinic schedule.
--- NOTE | 2017-06-14 11:05 | PQF ---
GORGE GEESOPHIA CHINO [id number] -[id number] CLINICAL DOCUMENTATION CLARIFICATION FORM: POST DISCHARGE Please exercise your independent, professional judgment in responding to the clarification form. Clinical indicators are provided on the bottom of this form for your review. Thank you. Please check appropriate box(s): Conflicting documentation was noted in the Medical Record, please clarify if patient is being treated/monitored for: [ x ] Viral Meningitis [ ] Bacterial Meningitis [ ] Other diagnosis [ ] Unable to determine In addition, please specify: Present on Admission (POA): [ x ] Yes [ ] No [ ] Unable to determine CLINICAL INDICATORS - SIGNS / SYMPTOMS/ LABS Discharge Summary 06/13/17 documents nonbacterial meningitis, likely viral. Query answered on 06/12/17 documents bacterial meningitis. RISK FACTORS Headache TREATMENT Vancomycin IV, Merrem - PN 06/11/17, CPOE Acyclovir 660mg IV06/10/17 (This form is maintained as a part of the permanent medical record) 2014 [employer] All Rights Reserved Donna Blair, CCS, [employer], CASC [email or web address]
== END 2017-06-13 16:37 | disposition home or self-care (01) | DRG 75 ==
LOC: ERS 14:42 → T4-A 06-10 02:06
PROVIDERS: ADMIT Internal Medicine; ATTEND Internal Medicine
PROC: 009U3ZX Drainage of Spinal Canal, Percutaneous Approach, Diagnostic (ICD-10-PCS; principal; 2017-06-10)
PROC: 05HM33Z Insertion of Infusion Device into Right Internal Jugular Vein, Percutaneous Approach (ICD-10-PCS; 2017-06-10)
DX: A87.9 Viral meningitis, unspecified (principal); Z68.41 Body mass index [BMI] 40.0-44.9, adult; E66.01 Morbid (severe) obesity due to excess calories; N92.0 Excessive and frequent menstruation with regular cycle; F17.220 Nicotine dependence, chewing tobacco, uncomplicated
CPT/HCPCS: 36415; 71045; 76856; 80048; 80053; 80074; 80202; 81003; 81015; 82553; 82945; 83735; 84157; 84484; 85025; 85060; 87040; 87070; 87086; 87149; 87205; 89051; 96365; 96366; 96367; 96368; 96375; 99406; A4216; J0133; J1200; J1885; J2185; J2765; J3010; J3370; J7050

== ENCOUNTER 2017-08-29 17:13 | Emergency (ER) | payer OTHER ==
--- NOTE | 2017-08-29 17:39 | RAD ---
TWO VIEWS OF THE CHEST: 08/29/17 COMPARISON: 05/29/17 HISTORY: Chest pain. FINDINGS: Two views of the chest show normal sized cardiomediastinal silhouette. There is no evidence of consol idation, mass, or pleural effusion. The bones are unremarkable. IMPRESSION: No evidence of acute cardiopulmonary disease. POS: [facility]
[2017-08-29 18:18] LABS: Hemoglobin 11.6 g/dL (12.0-16.0); Mean Corpuscular HGB CONC 33.2 g/dL (32.0-36.0); Mean Corpuscular Hemoglobin 22.4 pg (27.0-31.0); Platelet Count 350 thou/uL (130-400); RBC Distribution Width 15.2 % (11.5-14.5); Red Blood Cell (RBC) Count 5.17 mill/uL (4.20-5.40); White Blood Cell (WBC) Count 8.3 thou/uL (4.8-10.8)
[2017-08-29 18:37] LABS: ALT (SGPT) 26 U/L (8-55); AST (SGOT) 20 U/L (5-34); Albumin 4.1 g/dL (3.5-5.0); Alkaline Phosphatase 73 U/L (40-150); Anion Gap 11 mmol/L (10-20); BUN (Urea Nitrogen) 11 mg/dL (7.0-18.7); Bilirubin, Total 0.4 mg/dL (0.2-1.2); CK (CPK) 75 U/L (29-168); Calc. Creatinine Clearance 0 mL/min (70-130); Carbon Dioxide 21 mmol/L (22-29); Chloride 110 mmol/L (98-107); Estimated GFR-MDRD 89; Globulin 3.4 g/dL (2.4-3.5); Glucose 93 mg/dL (70-105); Lipase 34 U/L (8-78); Potassium 3.8 mmol/L (3.5-5.1); Protein, Total 7.5 g/dL (6.0-8.3); Sodium 138 mmol/L (136-145)
[2017-08-29 18:42] LABS: #Eosinphils 0.2 thou/uL (0.0-0.7); #Lymphocytes 3.2 thou/uL (1.20-3.40); #Monocytes 0.7 thou/uL (0.11-0.59); #Neutrophils 4.2 thou/uL (1.40-6.50); %Basophils 0.3 % (0.0-1.0); %Eosinophils 2.4 % (0.0-10.0); %Lymphocytes 38.7 % (21.0-51.0); %Monocytes 7.8 % (0.0-10.0); %Neutrophils 50.8 % (42.0-75.0); Anisocytosis SLIGHT = 6-15 cells (100X) (0-5/hpf); CKMB 0.3 ng/mL (0-6.6); MDiff Complete? YES; Mean Corpuscular Volume 67.4 fL (78.0-98.0); Microcytosis SLIGHT = 6-15 cells (100X) (0-5/hpf); Troponin I Less than 0.010 ng/mL (< 0.028)
[2017-08-29] MEDS ORDERED: Morphine 4 MG/ML VIAL ONE (20:09)
[2017-08-29] MEDS ORDERED: Ketorolac Tromethamine 60 MG/2 ML VIAL ONE (20:29)
== END 2017-08-29 21:07 | disposition home or self-care (01) ==
LOC: ERS 17:13
DX: R07.89 Other chest pain (principal); F41.9 Anxiety disorder, unspecified; F32.9 Major depressive disorder, single episode, unspecified; F17.220 Nicotine dependence, chewing tobacco, uncomplicated
CPT/HCPCS: 36415; 71046; 80053; 82553; 83690; 84484; 85025; 85379; 93005; 96372; J1885; J2270

== ENCOUNTER 2017-11-04 11:41 | Emergency (ER) | payer OTHER ==
[2017-11-04] MEDS ORDERED: Cyclobenzaprine 10 MG TAB ONE (13:21)
[2017-11-04 13:52] LABS: Bilirubin Negative (Negative); Blood, Urine Negative (Negative); Clarity CLOUDY (Clear); Glucose, Urine (Dipstick) Negative (Negative); Leukocyte Trace (Negative); Nitrite Negative (Negative); Protein, Urine (Dipstick) Negative (Neg-Trace); Specific Gravity, Urine 1.022 (1.002-1.036)
[2017-11-04 13:54] LABS: Pregnancy Test - Urine (BHCG) Negative (Negative); Pregu Control Background? CLEAR/WHITE (CLR/WHITE); Pregu Control Bar Appear? YES (CONTROL BAR); Specific Gravity 1.022 (1.002-1.036)
[2017-11-04 13:55] LABS: Bacteria/HPF Rare-Few HPF (None Seen); Hyaline Casts/LPF 0-3 HYALINE CAST LPF (0-3 Hyaline); Pathc Cast-AUWi Flag 0.43 (0-2.49); RBC/HPF 0-3 HPF (0-3)
[2017-11-04] MEDS ORDERED: Ketorolac Tromethamine 30 MG/ML VIAL ONE (14:11)
== END 2017-11-04 14:33 | disposition home or self-care (01) ==
LOC: ERS 11:41
DX: N39.0 Urinary tract infection, site not specified (principal); Z71.6 Tobacco abuse counseling; F41.9 Anxiety disorder, unspecified; F32.9 Major depressive disorder, single episode, unspecified; F17.220 Nicotine dependence, chewing tobacco, uncomplicated
CPT/HCPCS: 81003; 81015; 81025; 87086; 96372; 99406; J1885

== ENCOUNTER 2018-01-08 08:02 | Outpatient (CLI) | payer OTHER ==
--- NOTE | 2018-01-08 10:38 | ULT ---
ULTRASOUND SOFT TISSUES RIGHT FOOT: HISTORY: Pain and swelling in the right foot. FINDINGS: Sonographic evaluation in the region of soft tissue swelling, in the anterolateral portion of the rig ht foot, demonstrates no evidence of mass or pleural fluid collection. POS: [facility]
== END 2018-01-08 08:03 | disposition home or self-care (01) ==
LOC: BICULT 08:02
DX: M79.671 Pain in right foot (principal)
CPT/HCPCS: 76999

== ENCOUNTER 2018-08-31 18:21 | Emergency (ER) | payer OTHER ==
--- NOTE | 2018-08-31 19:36 | RAD ---
PA AND LATERAL CHEST: 08/31/18 HISTORY: Cough x2 days. Heart size and mediastinum are within normal limits. The lungs are clear of infiltrates. No signs of failure. IMPRESSION: No active intrathoracic disease. POS: [place]
== END 2018-08-31 19:55 | disposition home or self-care (01) ==
LOC: ERS 18:21
DX: O98.511 Other viral diseases complicating pregnancy, first trimester (principal); B34.9 Viral infection, unspecified; O99.341 Other mental disorders complicating pregnancy, first trimester; F41.9 Anxiety disorder, unspecified; F32.9 Major depressive disorder, single episode, unspecified; O99.331 Smoking (tobacco) complicating pregnancy, first trimester; F17.220 Nicotine dependence, chewing tobacco, uncomplicated; Z3A.01 Less than 8 weeks gestation of pregnancy
CPT/HCPCS: 71046

== ENCOUNTER 2018-09-12 11:32 | Emergency (ER) | payer OTHER ==
[2018-09-12 12:14] LABS: Hemoglobin 12.5 g/dL (12.0-16.0); Mean Corpuscular HGB CONC 33.1 g/dL (32.0-36.0); Mean Corpuscular Hemoglobin 23.9 pg (27.0-31.0); Mean Corpuscular Volume 72.3 fL (78.0-98.0); Mean Platelet Volume 7.2 fL (7.4-10.4); Platelet Count 300 thou/uL (130-400); RBC Distribution Width 14.6 % (11.5-14.5); Red Blood Cell (RBC) Count 5.23 mill/uL (4.20-5.40); White Blood Cell (WBC) Count 9.2 thou/uL (4.8-10.8)
[2018-09-12 12:31] LABS: ALT (SGPT) 12 U/L (8-55); AST (SGOT) 10 U/L (5-34); Albumin 3.8 g/dL (3.5-5.0); Alkaline Phosphatase 81 U/L (40-150); Anion Gap 10 mmol/L (10-20); BUN (Urea Nitrogen) 8 mg/dL (7.0-18.7); Bilirubin, Total 0.5 mg/dL (0.2-1.2); Calc. Creatinine Clearance 0 mL/min (70-130); Calcium 9.1 mg/dL (7.8-10.44); Carbon Dioxide 22 mmol/L (22-29); Chloride 108 mmol/L (98-107); Estimated GFR-MDRD Greater than 90; Globulin 3.4 g/dL (2.4-3.5); Glucose 103 mg/dL (70-105); Potassium 3.5 mmol/L (3.5-5.1); Protein, Total 7.2 g/dL (6.0-8.3); Sodium 136 mmol/L (136-145)
[2018-09-12 12:44] LABS: #Basophils 0.1 thou/uL (0.0-0.2); #Eosinphils 0.2 thou/uL (0.0-0.7); #Lymphocytes 2.7 thou/uL (1.20-3.40); #Monocytes 0.6 thou/uL (0.11-0.59); #Neutrophils 5.5 thou/uL (1.40-6.50); %Basophils 1.3 % (0.0-1.0); %Lymphocytes 29.9 % (21.0-51.0); %Monocytes 6.8 % (0.0-10.0); Anisocytosis SLIGHT = 6-15 cells (100X) (0-5/hpf); MDiff Complete? YES; Microcytosis SLIGHT = 6-15 cells (100X) (0-5/hpf); Platelet Morphology Comment Appears Adequate
[2018-09-12 12:46] LABS: Bacteria/HPF 2+ HPF (None Seen); Bilirubin Negative (Negative); Blood, Urine 1+ (Negative); Clarity Turbid (Clear); Glucose, Urine (Dipstick) Normal (Negative); Leukocyte 500 Leu/uL (Negative); Nitrite Negative (Negative); Protein, Urine (Dipstick) 30 mg/dL (Neg-Trace); WBC/HPF Greater than 50 HPF (0-3)
[2018-09-12] MEDS ORDERED: Acetaminophen 500 MG TAB ONE (13:47)
--- NOTE | 2018-09-12 13:49 | ULT ---
Exam: Pelvic ultrasound, transvaginal, transabdominal, and vascular duplex with color and spectral Doppler imaging: FINDINGS: The uterus is minimally enlarged measuring 11.5 x 7.6 x 8.2 cm. Left ovary measures 3.3 x 4.4 x 3.5 cm containing a cyst measuring approximately 2.6 x 3.3 cm possibl y a corpus luteum cyst. Early single viable intrauterine fetus is noted. heart rate 171 BPM. [place]-rump length is 1.7 cm--18 weeks 1 day. Probable very small subchorionic hemorrhage. IMPRESSION: Early viable intrauterine fetus at 8 weeks 1 day gestation with an EDC of 04/23/2019. Probable very small subchorionic hemorrhage. Continued short-term follow-up is clinically indicated. Left ovarian possibly corpus luteum cyst.
== END 2018-09-12 15:35 | disposition home or self-care (01) ==
LOC: ERS 11:32
DX: O20.0 Threatened abortion (principal); O23.41 Unspecified infection of urinary tract in pregnancy, first trimester; O99.331 Smoking (tobacco) complicating pregnancy, first trimester; F17.210 Nicotine dependence, cigarettes, uncomplicated; F41.9 Anxiety disorder, unspecified; F32.9 Major depressive disorder, single episode, unspecified; Z3A.08 8 weeks gestation of pregnancy
CPT/HCPCS: 36415; 76856; 80053; 81003; 81015; 84702; 85025; 86900; 86901; 90384; 96372

== ENCOUNTER 2018-09-17 15:53 | Emergency (ER) | payer OTHER ==
--- NOTE | 2018-09-17 16:52 | RAD ---
RIGHT FOREARM 2 VIEWS: Date: 09/17/18 HISTORY: Fall with injury. FINDINGS: No evidence of fracture. Radius and ulna appear intact and unremarkable. IMPRESSION: No acute findings. POS: [place]
--- NOTE | 2018-09-17 16:53 | RAD ---
RIGHT WRIST 3 VIEWS: Date: 09/17/18 HISTORY: Injury. FINDINGS: Carpals appear intact. There is mild widening of the scapholunate space in the PA projection. Carpals otherwise appear normally aligned. Slight ulnar negative variance. IMPRESSION: No acute fracture. Widening of the scapholunate space and mild ulnar negative variance. Access for li gamentous instability. POS: [facility]
== END 2018-09-17 17:30 | disposition home or self-care (01) ==
LOC: ERS 15:53
DX: M25.531 Pain in right wrist (principal); E66.9 Obesity, unspecified; F41.9 Anxiety disorder, unspecified; F32.9 Major depressive disorder, single episode, unspecified; F17.210 Nicotine dependence, cigarettes, uncomplicated; W20.8XXA Other cause of strike by thrown, projected or falling object, initial encounter

== ENCOUNTER 2018-09-21 20:59 | Emergency (ER) | payer OTHER ==
[2018-09-21 21:38] LABS: #Basophils 0.1 thou/uL (0.0-0.2); #Eosinphils 0.1 thou/uL (0.0-0.7); #Lymphocytes 2.8 thou/uL (1.20-3.40); #Monocytes 0.8 thou/uL (0.11-0.59); #Neutrophils 5.3 thou/uL (1.40-6.50); %Basophils 0.6 % (0.0-1.0); %Lymphocytes 30.8 % (21.0-51.0); %Monocytes 8.9 % (0.0-10.0); %Neutrophils 58.7 % (42.0-75.0); Hemoglobin 12.5 g/dL (12.0-16.0); Mean Corpuscular HGB CONC 34.1 g/dL (32.0-36.0); Mean Corpuscular Hemoglobin 24.9 pg (27.0-31.0); Mean Corpuscular Volume 73.1 fL (78.0-98.0); Mean Platelet Volume 7.2 fL (7.4-10.4); Platelet Count 318 thou/uL (130-400); RBC Distribution Width 14.9 % (11.5-14.5)
[2018-09-21 21:59] LABS: ALT (SGPT) 17 U/L (8-55); AST (SGOT) 12 U/L (5-34); Albumin 3.8 g/dL (3.5-5.0); Alkaline Phosphatase 78 U/L (40-150); Anion Gap 12 mmol/L (10-20); BUN (Urea Nitrogen) 7 mg/dL (7.0-18.7); Bilirubin, Total 0.4 mg/dL (0.2-1.2); Calc. Creatinine Clearance 0 mL/min (70-130); Calcium 9.1 mg/dL (7.8-10.44); Carbon Dioxide 20 mmol/L (22-29); Chloride 107 mmol/L (98-107); Estimated GFR-MDRD Greater than 90; Globulin 3.5 g/dL (2.4-3.5); Glucose 103 mg/dL (70-105); Potassium 3.7 mmol/L (3.5-5.1); Protein, Total 7.3 g/dL (6.0-8.3); Sodium 135 mmol/L (136-145)
[2018-09-21 22:39] LABS: Bilirubin Negative (Negative); Blood, Urine 2+ (Negative); Clarity Clear (Clear); Glucose, Urine (Dipstick) Normal (Negative); Leukocyte 25 Leu/uL (Negative); Mucous/LPF Rare LPF (<2+); Nitrite Negative (Negative); Protein, Urine (Dipstick) 20 mg/dL (Neg-Trace); RBC/HPF 0-3 HPF (0-3)
[2018-09-21 22:40] LABS: Bacteria/HPF 1+ HPF (None Seen)
[2018-09-24 20:23] LABS: Chlamydia by PCR Not Detected (NotDetected); GC by PCR Not Detected (NotDetected)
== END 2018-09-21 23:08 | disposition home or self-care (01) ==
LOC: ERS 20:59
DX: O20.0 Threatened abortion (principal); O99.341 Other mental disorders complicating pregnancy, first trimester; F41.9 Anxiety disorder, unspecified; F32.9 Major depressive disorder, single episode, unspecified; O99.331 Smoking (tobacco) complicating pregnancy, first trimester; F17.210 Nicotine dependence, cigarettes, uncomplicated; Z3A.09 9 weeks gestation of pregnancy
CPT/HCPCS: 36415; 80053; 81003; 81015; 84702; 85025; 87480; 87491; 87510; 87591; 87660; 99284

== ENCOUNTER 2019-04-14 12:47 | Day surgery (SDC) | payer OTHER ==
--- NOTE | 2019-04-14 16:47 | HP ---
TIME: 1620 hours. LOCATION: Labor and Delivery Triage. CHIEF COMPLAINT: Nausea, vomiting, and "chest cold." HISTORY OF PRESENT ILLNESS: This is a patient of Dr. Tiara Young. The patient is a 28-year-old, G3, P2 with 2 previous C-sections, who scheduled with a repeat this Sunday by Dr. Young. She was seen first in the ER, but not fully evaluated. She was sent up to Labor and Delivery as she was 38 weeks. She states that she has had nausea and vomiting and a "chest cold" with occasional cough for about 2 days. She has a daughter at home with same symptoms. She denies ruptured membranes, vaginal bleeding, or contractions, and she has good movement. REVIEW OF SYSTEMS: Complete review of systems was checked and is otherwise negative unless specified in the HPI. PAST MEDICAL HISTORY: Significant only for obesity. PAST SURGICAL HISTORY: Includes arm surgery, previous knee surgery, and her C-sections x2. SOCIAL HISTORY: Negative for alcohol, tobacco, or drug use. MEDICATIONS: vitamins. PHYSICAL EXAMINATION: VITAL SIGNS: Blood pressure 112/55, her pulse is 80, her temperature is 98.5. GENERAL: She is in no acute distress. ABDOMEN: Soft and nontender. : There is no evidence of gross rupture or vaginal bleeding. Cervical exam is currently deferred as there is no complaint of labor contractions. On external monitor, the heart tones are in the 140s and they are reactive and there is only one contraction on the tocodynamometer over about a 30-minute interval. ASSESSMENT: This is a multigravida at 38 weeks with possible viral gastroenteritis. She does not have signs/symptoms compatible with biliary colic at this time, and she has a sick contact at home with similar symptoms. This points to a possible viral etiology. PLAN: I have ordered the following. Flu swab, CBC, CMP, stat chest x-ray one view, and 1 L of lactated Ringer. If her workup is basically negative, we will call this viral gastroenteritis and have her follow up on Sunday as scheduled. Job ID: [id number]
[2019-04-14] MEDS ORDERED: hydrALAZINE 20 MG/ML VIAL SLOW IVP PRN ×2 (17:02→17:03)
[2019-04-14] MEDS ORDERED: Lactated Ringer's 1,000 ML IV SCH (17:15)
[2019-04-14 17:18] VITALS: BMI 45.0
--- NOTE | 2019-04-14 17:29 | PDOC.EVN ---
Event Note - Event Note Event Note: CXR was negative (under the EMR entry for 04/18/19 rather than today's visit). Influenza is negative
[2019-04-14 17:57] LABS: ALT (SGPT) 8 U/L (8-55); AST (SGOT) 12 U/L (5-34); Alkaline Phosphatase 136 U/L (40-110); Anion Gap 11 mmol/L (10-20); BUN (Urea Nitrogen) 4 mg/dL (7.0-18.7); Bilirubin, Total 0.4 mg/dL (0.2-1.2); Calc. Creatinine Clearance 318 mL/min (70-130); Calcium 8.6 mg/dL (7.8-10.44); Carbon Dioxide 22 mmol/L (22-29); Chloride 109 mmol/L (98-107); Estimated GFR-MDRD Greater than 90; Globulin 3.2 g/dL (2.4-3.5); Glucose 80 mg/dL (70-105); Potassium 3.9 mmol/L (3.5-5.1); Protein, Total 6.2 g/dL (6.0-8.3); Sodium 138 mmol/L (136-145)
[2019-04-14 18:12] LABS: #Eosinphils 0.3 thou/uL (0.0-0.7); #Lymphocytes 2.9 thou/uL (1.20-3.40); #Monocytes 0.8 thou/uL (0.11-0.59); #Neutrophils 6.3 thou/uL (1.40-6.50); %Basophils 0.3 % (0.0-1.0); %Eosinophils 2.8 % (0.0-10.0); %Lymphocytes 28.3 % (21.0-51.0); %Monocytes 7.6 % (0.0-10.0); %Neutrophils 61.1 % (42.0-75.0); Hemoglobin 9.9 g/dL (12.0-16.0); Mean Corpuscular HGB CONC 33.5 g/dL (32.0-36.0); Mean Corpuscular Hemoglobin 23.4 pg (27.0-31.0); Mean Corpuscular Volume 69.8 fL (78.0-98.0); Mean Platelet Volume 7.6 fL (7.4-10.4); Platelet Count 287 thou/uL (130-400); RBC Distribution Width 16.4 % (11.5-14.5); Red Blood Cell (RBC) Count 4.23 mill/uL (4.20-5.40); White Blood Cell (WBC) Count 10.3 thou/uL (4.8-10.8)
[2019-04-14 18:14] LABS: Anisocytosis MODERATE=16-30 cells (100X) (0-5/hpf); Hypochromia SLIGHT = 6-15 cells (100X) (0-5/hpf); MDiff Complete? YES; Microcytosis MODERATE=15-30 cells (100X) (0-5/hpf); Platelet Morphology Comment Appears Adequate; Polychromasia MODERATE = 3-4 cells (100X) (0-2/hpf)
--- NOTE | 2019-04-14 18:27 | PDOC.EVN ---
Event Note - Event Note Event Note: labs ok for clinical picture. OK for follow up WED as scheduled. DX: mild gastroenteritis, NOS.
== END 2019-04-14 18:50 | disposition home or self-care (01) ==
LOC: ERS 12:47 → L&D/OP 16:00 → L&D 16:01 → L&D/OP 18:50
PROVIDERS: ATTEND Family Medicine
DX: O21.2 Late vomiting of pregnancy (principal); O99.213 Obesity complicating pregnancy, third trimester; E66.9 Obesity, unspecified; Z3A.38 38 weeks gestation of pregnancy
CPT/HCPCS: 36415; 87804; 99283; 99284

== ENCOUNTER 2019-04-18 05:21 | Inpatient (IN) | payer OTHER ==
--- NOTE | 2019-04-14 16:47 | RAD ---
PORTABLE CHEST ONE VIEW: Date: 04-14-2019 Time: 4:39 p.m. History: Cough FINDINGS: Comparison is made with exam of 09-09-27. The heart size is normal. No lobar consolidation, pneumothoraces, matthias pulmonary edema, or pleural e ffusions are seen. IMPRESSION: No acute process. POS: [facility]
[~2019-04-18 05:21] MED LIST: Lactated Ringer's 1,000 ML IV SCH; Promethazine HCl 25 MG/ML VIAL IM/IV PRN; hydrALAZINE 20 MG/ML VIAL SLOW IVP PRN
[2019-04-18 06:07] VITALS: BMI 46.0
[2019-04-18] MEDS ORDERED: Promethazine HCl 25 MG/ML VIAL IM PRN ×3 (06:15→08:39)
[2019-04-18] MEDS ORDERED: Gentamicin 80 MG/2 ML VIAL IVPB SCH (06:15)
[2019-04-18] MEDS ORDERED: Ondansetron PF 4 MG/2 ML Vial IVP PRN ×3 (06:15→08:39)
[2019-04-18] MEDS ORDERED: Acetaminophen 500 MG TAB PO PRN (06:15)
[2019-04-18] MEDS ORDERED: Lactated Ringer's 1,000 ML IV SCH (06:15)
[2019-04-18] MEDS ORDERED: hydrALAZINE 20 MG/ML VIAL SLOW IVP PRN ×2 (06:15→08:39)
[2019-04-18] MEDS ORDERED: Butorphanol Tartrate 1 MG/ML VIAL SLOW IVP PRN (06:15)
[2019-04-18 06:25] LABS: Mean Corpuscular HGB CONC 31.5 g/dL (32.0-36.0); Mean Corpuscular Hemoglobin 21.8 pg (27.0-31.0); Mean Corpuscular Volume 69.1 fL (78.0-98.0); Mean Platelet Volume 8.4 fL (7.4-10.4); Platelet Count 346 thou/uL (130-400); RBC Distribution Width 16.8 % (11.5-14.5); Red Blood Cell (RBC) Count 5.07 mill/uL (4.20-5.40); White Blood Cell (WBC) Count 10.6 thou/uL (4.8-10.8)
[2019-04-18] MEDS ORDERED: Bicitra 30 ML UDCUP PO SCH (06:30)
[2019-04-18] MEDS ORDERED: Clindamycin/D5W 900 MG in Premix Bag 1 BAG IVPB SCH (06:30)
[2019-04-18] MEDS ORDERED: Gentamicin Sulfate 120 MG in Premix Bag 1 BAG IVPB SCH (06:30)
[2019-04-18] MEDS ORDERED: Fentanyl 100 MCG/2 ML VIAL ONE (06:54)
[2019-04-18] MEDS ORDERED: Oxytocin 10 UNITS/ML VIAL ONE (06:55)
[2019-04-18] MEDS ORDERED: Ketorolac Tromethamine 30 MG/ML VIAL ONE (06:55)
[2019-04-18] MEDS ORDERED: PHENYLEPHRINE-NS 100 MCG/ML 10 ML SYRINGE ONE (06:55)
[2019-04-18] MEDS ORDERED: Ondansetron PF 4 MG/2 ML Vial ONE (06:55)
[2019-04-18] MEDS ORDERED: HYDROmorphone 2 MG/ML VIAL SLOW IVP PRN (06:59)
[2019-04-18] MEDS ORDERED: diphenhydrAMINE 25 MG CAP PO PRN ×2 (06:59→08:39)
[2019-04-18] MEDS ORDERED: Ondansetron HCl/PF 4 MG/2 ML Vial IVP PRN (06:59)
[2019-04-18] MEDS ORDERED: L&D-Morphine 4 MG/ML VIAL SLOW IVP PRN (06:59)
[2019-04-18] MEDS ORDERED: Zolpidem Tartrate 5 MG TAB PO PRN ×2 (06:59→08:39)
[2019-04-18] MEDS ORDERED: Naloxone HCl 0.4 mg/ml Vial IV PRN (06:59)
[2019-04-18] MEDS ORDERED: fentaNYL Citrate/PF 2,000 MCG in Sodium Chloride 0.9% 60 ML IV PRN (06:59)
[2019-04-18] MEDS ORDERED: diphenhydrAMINE 50 MG/ML VIAL IVP PRN (06:59)
[2019-04-18] MEDS ORDERED: Meperidine HCl/PF 25 MG/ML VIAL SLOW IVP PRN (06:59)
[2019-04-18] MEDS ORDERED: diphenhydrAMINE 50 MG/ML VIAL IM PRN (06:59)
[2019-04-18] MEDS ORDERED: Ketorolac Tromethamine 30 MG/ML VIAL IVP SCH (07:00)
[2019-04-18] MEDS ORDERED: Communication Order-Pharmacy FS SCH (07:00)
[2019-04-18 07:06] LABS: HBSAg Index 0.22 S/CO (0-0.99); HIV (1/2) Antibody/Antigen Non-Reactive (NonReactive); HIV 1/2 INDEX 0.09 S/CO (<1.00); Hep B Surf Ag Non-Reactive S/CO (NonReactive); Syphilis Antibody Nonreactive (Nonreactive); Syphilis Antibody Index 0.07 S/CO (<1.00 Non-Reactive)
--- NOTE | 2019-04-18 07:21 | PDOC.LDHP ---
Labor and Delivery H&P Chief complaint: scheduled section HPI: 28 yo @ 39w1d who presents for RCS. Pt anxious about her RCS. RFs: Morbid obesity, CS x2, Rh neg, chewing tobacco, equivocal SMA screening, poor PNC. Current gestational age (weeks): 39 Due date: 04/24/19 Dating criteria: first trimester ultrasound Grav: 3 Para: 2 OB History Details: 2 LTCS Current complications: none Abnormal US findings: No Past Medical History: Morbid obesity Current medications: pre-marleny vitamins Previous surgical history: low tranverse CS (x2), other (? left knee surgery) Allergies/Adverse Reactions: Allergies Allergy/AdvReac Type Severity Reaction Status Date / Time coconut Allergy Severe Anaphylaxis Verified 01/05/17 21:24 tomato Allergy Severe Anaphylaxis Verified 06/12/17 13:18 cefadroxil Allergy Intermediate Rash Verified 12/18/16 16:23 Social history: tobacco use - Physical Exam Vital signs reviewed and normal: yes General: NAD, other (anxious) Heart: RRR Lungs: nonlabored breathing Abdomen: gravid Extremeties: no edema FHT: category 1 (135, mod brady, +accels, no decels) [place] contractions every: no ctx - OB Labs Blood type: O RH: negative Antibody Screen: negative HIV: negative RPR: negative HEPSAg: negative 1 hour GCT: negative GBS: negative Urine drug screen: negative Rubella: non-immune - Assessment 28 yo @ 39w1d Admit for RLTCS (H/O CS x2) Morbid obesity Rh neg Chewing tobacco use Equivocal SMA Rubella NI Poor PNC - Plan Plan: admit to L&D, to OR for section, informed consent obtained, anesthesia consult for pain management, other (Rhogam and MMR PP)
[2019-04-18] MEDS ORDERED: EPHEDRINE 25 MG/5 ML SYRINGE ONE (08:06)
[2019-04-18] MEDS ORDERED: HYDROcodone/Acetaminophen 5/325 mg Tablet PO PRN (08:39)
[2019-04-18] MEDS ORDERED: Acetaminophen 325 MG TAB PO PRN (08:39)
[2019-04-18] MEDS ORDERED: Adacel (T-DAP) 0.5 ML SYRINGE IM ONE (08:39)
[2019-04-18] MEDS ORDERED: Lanolin Ointment 7 GM TUBE TOP PRN (08:39)
[2019-04-18] MEDS ORDERED: Bisacodyl 10 MG SUPP PR PRN (08:39)
[2019-04-18] MEDS ORDERED: Simethicone Chewable 80 MG TAB PO PRN (08:39)
[2019-04-18] MEDS ORDERED: Meperidine HCl/PF 25 MG/ML VIAL IM PRN (08:39)
--- NOTE | 2019-04-18 08:52 | PDOC.OPDEL ---
OB Operative/Delivery Note Delivery Dr/Surgeon: Tiara Young DO Assist: JUDY Velazquez Pre-Delivery Diagnosis: scheduled section Procedure/Post Delivery Dx: repeat low transverse CS Weeks gestation: 39 Anesthesia: spinal - Findings A Sex: female - 1 min: 9 - 5 min: 9 - Additional Findings/Plan Placenta delivered: spontaneous findings: low transverse hysterotomy without extension, normal uterus, normal tubes, normal ovaries Estimated blood loss: QBL 440 cc Compilations/Other Findings: Infant in cephalic Clear amniotic fluid Normal appearing placenta. Thin adhesions from dome of the bladder to the MELODY Post delivery plan: routine recovery
--- NOTE | 2019-04-18 10:30 | OP ---
DATE OF PROCEDURE: 04/18/2019 PREOPERATIVE DIAGNOSES: 1. A 39-week 1-day intrauterine . 2. History of low-transverse delivery x2. 3. Morbid obesity. 4. Rh negative status. 5. Rubella nonimmune. 6. Poor compliance with care. 7. Tobacco use in . POSTOPERATIVE DIAGNOSES: 1. A 39-week 1-day intrauterine . 2. History of low-transverse delivery x2. 3. Morbid obesity. 4. Rh negative status. 5. Rubella nonimmune. 6. Poor compliance with care. 7. Tobacco use in . PROCEDURE PERFORMED: Repeat low-transverse delivery via Pfannenstiel skin incision. COMPRESSED GAS TESTER: Luanne Ness PA-C. COMPLICATIONS: None. ANESTHESIA: Spinal with Duramorph. QUANTITATIVE BLOOD LOSS: 440 mL. FINDINGS: Viable female infant in cephalic presentation with Apgars of 9 and 9. Clear amniotic fluid. Normal-appearing uterus, fallopian tubes, and ovaries bilaterally with thin adhesions from the dome of the bladder to the lower uterine segment. INDICATIONS FOR THE PROCEDURE: Ms. Cris Chatman is a 28-year-old, G3, P2, at 39 weeks and 1 day with a history of 2 prior deliveries, who presented for her repeat section. Please see remainder of preoperative diagnosis for other antepartum complications. PROCEDURE IN DETAIL: The patient was brought to the operating room. She was placed under spinal anesthesia using Duramorph. She was prepped and draped in sterile fashion and a Cortes catheter had been placed. An official time-out was performed. She was given gentamicin and clindamycin for surgical prophylaxis due to a cephalosporin allergy. A Pfannenstiel skin incision was made through the previous scar. This was carried down to the underlying fascial layer. The fascia was incised in the midline and extended bilaterally using Coffman scissors. The superior aspect of the fascial incision was grasped using Tarik clamps, tented upwards, dissected free from the underlying rectus abdominis muscles and the same was performed in the inferior aspect of fascial incision. The rectus abdominis muscles were . The peritoneum was elevated using hemostats and incised using Metzenbaum scissors. This was extended using both sharp and blunt dissection. The Chente O retractor was then placed into the abdomen. Bladder flap was created. There were thin adhesions from the dome of the bladder to the lower uterine segment, which were taken down using Metzenbaum scissors. A low-transverse hysterotomy was made using the scalpel. This was extended using blunt dissection. Amniotic membranes were ruptured with clear amniotic fluid. The was delivered in cephalic presentation without difficulty. 's cord was clamped and cut. The infant was handed to the awaiting neonatology team. Cord sample and cord blood were obtained. The placenta was delivered spontaneously intact. The uterus was cleared of all clot and debris. The hysterotomy was closed in a running locking fashion using 1 Monocryl, creating hemostasis. The bilateral adnexa were evaluated and normal in appearance. The pelvis was irrigated and cleared of all clot and debris. Again, the hysterotomy was evaluated and normal in appearance. The Chente O retractor was removed from the abdomen. The peritoneum was reapproximated along the midline. The rectus abdominis muscles were evaluated and hemostatic. The fascia was closed from bilateral apices, meeting in the midline using 0 PDS. Subcutaneous layer was copiously irrigated and hemostatic with use of the Bovie. Subcutaneous layer was closed using 3- 0 Vicryl and the skin was closed using 4-0 Monocryl and Dermabond. The patient tolerated the procedure well. There were no complications. All counts were correct x3. Job ID: [id number] [facility]
[2019-04-18] MEDS: Prenatal Vitamin 1 TAB PO SCH (12:02)
[2019-04-18] MEDS: Docusate Calcium (SURFAK) 240 MG CAP PO SCH ×2 (12:02→22:08)
[2019-04-18] MEDS: Ferrous Sulfate 325 MG TAB PO SCH ×2 (12:02→22:20)
[2019-04-18] MEDS: Ketorolac Tromethamine 30 MG/ML VIAL IVP SCH ×3 (16:05→22:10)
[2019-04-18] MEDS: Ibuprofen 800 MG TAB PO SCH (16:06)
[2019-04-19] MEDS: Ibuprofen 800 MG TAB PO SCH ×4 (00:22→21:53)
--- NOTE | 2019-04-19 04:22 | PDOC.PP ---
Post Progress Note Post Day #: 1 Subjective: Doing well. Bottle feeding. Reports a cough. Vital Signs (12 hours) Temp Pulse Resp BP Pulse Ox 04/18/19 23:53 97.9 F 74 14 110/59 L 98 04/18/19 19:35 98.0 F 86 15 121/68 95 04/18/19 17:30 98.8 F 78 13 126/69 97 Weight Weight 141.521 kg - Physical Examination General: NAD Respiratory: non-labored breathing Abdominal: appropriately TTP Skin: CS incision dry & intact (covered with dressing. Covered by pannus) Neurological: no gross focal deficits Psychiatric: A&Ox3, normal affect Result Diagrams: 04/19/19 06:26 Additional Labs: Post Labs Blood Type O NEGATIVE 04/18/19 06:17 Hep Bs Antigen Non-Reactive S/CO (NonReactive) 04/18/19 06:17 - Assessment/Plan 28yo delivered rLTCS now POD #1 - Meeting PP milestones. Pain well controlled. - Added Mucinex DM for cough, hug pillow when coughing - H&H: 11-> 8.9 Kathie Grande MD PGY-2 Pt seen and evaluated by Attending Dr Ramos Ramos
[2019-04-19] MEDS: Ketorolac Tromethamine 30 MG/ML VIAL IVP SCH ×4 (06:32→23:03)
[2019-04-19 06:45] LABS: Hemoglobin 8.9 g/dL (12.0-16.0); Mean Corpuscular Hemoglobin 23.2 pg (27.0-31.0); Mean Corpuscular Volume 70.3 fL (78.0-98.0); Mean Platelet Volume 8.4 fL (7.4-10.4); Platelet Count 256 thou/uL (130-400); RBC Distribution Width 16.7 % (11.5-14.5); Red Blood Cell (RBC) Count 3.83 mill/uL (4.20-5.40); White Blood Cell (WBC) Count 9.7 thou/uL (4.8-10.8)
[2019-04-19] MEDS: Prenatal Vitamin 1 TAB PO SCH (09:00)
[2019-04-19] MEDS: guaiFENesin/DM ER PO SCH ×2 (09:12→21:54)
[2019-04-19] MEDS: Ferrous Sulfate 325 MG TAB PO SCH ×2 (09:13→21:53)
[2019-04-19] MEDS: Docusate Calcium (SURFAK) 240 MG CAP PO SCH ×2 (09:13→21:54)
[2019-04-19] MEDS: HYDROcodone/Acetaminophen 5/325 mg Tablet PO PRN ×2 (13:37→20:03)
[2019-04-19] MEDS ORDERED: Sodium Chloride 0.9% 10 ML ONE (14:41)
[2019-04-20] MEDS: Ibuprofen 800 MG TAB PO SCH (06:12)
[2019-04-20] MEDS: Ketorolac Tromethamine 30 MG/ML VIAL IVP SCH ×2 (06:13→09:07)
--- NOTE | 2019-04-20 06:58 | PDOC.PP ---
Post Progress Note Post Day #: 2 PO intake tolerated: yes Flatus: yes Ambulation: yes Vital Signs (12 hours) Temp Pulse Resp BP Pulse Ox 04/20/19 04:40 98.1 F 78 18 127/74 96 04/20/19 00:55 97.9 F 76 18 118/55 L 98 04/19/19 20:00 98.4 F 85 20 117/60 98 Weight Weight 312 lb - Physical Examination General: NAD Cardiovascular: no m/r/g, RRR Respiratory: clear to auscultation bilaterally, non-labored breathing Abdominal: + bowel sounds, no distention, appropriately TTP Skin: CS incision dry & intact, no rash Neurological: no gross focal deficits (doiing well desires dc home.) Result Diagrams: 04/19/19 06:26 Additional Labs: Post Labs Blood Type O NEGATIVE 04/18/19 06:17 Hep Bs Antigen Non-Reactive S/CO (NonReactive) 04/18/19 06:17
[2019-04-20 08:19] VITALS: BP 134/67; TEMP 97.6
[2019-04-20] MEDS: Prenatal Vitamin 1 TAB PO SCH (09:06)
[2019-04-20] MEDS: guaiFENesin/DM ER PO SCH (09:06)
[2019-04-20] MEDS: Ferrous Sulfate 325 MG TAB PO SCH (09:07)
[2019-04-20] MEDS: Docusate Calcium (SURFAK) 240 MG CAP PO SCH (09:07)
[2019-04-20] MEDS: HYDROcodone/Acetaminophen 5/325 mg Tablet PO PRN (09:10)
[2019-04-21 15:37] LABS: Mumps IgG ABS Less than 9.0 AU/mL (Immune >10.9)
== END 2019-04-20 12:35 | disposition home or self-care (01) | DRG 788 ==
LOC: L&D 05:21 → 3SW 11:38
PROVIDERS: ADMIT Obstetrics & Gynecology; ATTEND Obstetrics & Gynecology
PROC: 10D00Z1 Extraction of Products of Conception, Low, Open Approach (ICD-10-PCS; principal; 2019-04-18)
DX: O34.211 Maternal care for low transverse scar from previous cesarean delivery (principal); O99.344 Other mental disorders complicating childbirth; F41.9 Anxiety disorder, unspecified; O99.214 Obesity complicating childbirth; E66.01 Morbid (severe) obesity due to excess calories; O99.334 Smoking (tobacco) complicating childbirth; F17.220 Nicotine dependence, chewing tobacco, uncomplicated; Z3A.39 39 weeks gestation of pregnancy; Z37.0 Single live birth; Z88.8 Allergy status to other drugs, medicaments and biological substances; Z91.018 Allergy to other foods
CPT/HCPCS: 36415; 51702; 71045; 85027; 85461; 86735; 86762; 86765; 86780; 86850; 86900; 86901; 87340; 87389; 90384; 96372; J1885; J2405; J2590; J3010; J3490

== ENCOUNTER 2019-11-15 07:17 | Emergency (ER) | payer OTHER ==
[2019-11-15 10:23] LABS: Bilirubin Negative (Negative); Blood, Urine Large (Negative); Glucose, Urine (Dipstick) Negative (Negative); Ketone, Urine Negative (Negative); Leukocyte Negative (Negative); Nitrite Negative (Negative); Protein, Urine (Dipstick) Negative (Neg-Trace); Urobilinogen 0.2 mg/dL (Less than 2)
[2019-11-15 10:26] LABS: Clarity Opaque (Clear)
[2019-11-15 10:29] LABS: Specific Gravity, Urine 1.029 (1.002-1.036)
[2019-11-15 10:30] LABS: Pregnancy Test - Urine (BHCG) Negative (Negative); Pregu Control Background? CLEAR/WHITE (CLR/WHITE); Pregu Control Bar Appear? YES (CONTROL BAR); Specific Gravity 1.029 (1.002-1.036)
[2019-11-15 10:32] LABS: Bacteria/HPF None Seen HPF (None Seen); Squamous Epithelial 0-3 HPF (0-3); WBC/HPF None Seen HPF (0-3)
[2019-11-15] MEDS ORDERED: Ketorolac Tromethamine 30 MG/ML VIAL ONE (11:53)
[2019-11-15 12:16] LABS: #Basophils 0.1 thou/uL (0.0-0.2); #Eosinphils 0.2 thou/uL (0.0-0.7); #Lymphocytes 2.5 thou/uL (1.20-3.40); #Monocytes 0.7 thou/uL (0.11-0.59); #Neutrophils 4.3 thou/uL (1.40-6.50); %Basophils 1.1 % (0.0-1.0); %Eosinophils 2.2 % (0.0-10.0); %Lymphocytes 32.3 % (21.0-51.0); %Monocytes 9.2 % (0.0-10.0); %Neutrophils 55.2 % (42.0-75.0); Hemoglobin 11.5 g/dL (12.0-16.0); Mean Corpuscular HGB CONC 32.8 g/dL (32.0-36.0); Mean Corpuscular Hemoglobin 23.8 pg (27.0-31.0); Mean Corpuscular Volume 72.5 fL (78.0-98.0); Mean Platelet Volume 7.7 fL (7.4-10.4); Platelet Count 316 thou/uL (130-400); RBC Distribution Width 14.9 % (11.5-14.5); Red Blood Cell (RBC) Count 4.85 mill/uL (4.20-5.40); White Blood Cell (WBC) Count 7.7 thou/uL (4.8-10.8)
[2019-11-15 12:40] LABS: MDiff Complete? YES; Microcytosis SLIGHT = 6-15 cells (100X) (0-5/hpf); Platelet Morphology Comment Appears Adequate; Polychromasia SLIGHT = 2-3 cells (100X) (0-2/hpf)
== END 2019-11-15 12:44 | disposition home or self-care (01) ==
LOC: ERS 07:17
DX: N92.0 Excessive and frequent menstruation with regular cycle (principal); E66.9 Obesity, unspecified; F41.9 Anxiety disorder, unspecified; F32.9 Major depressive disorder, single episode, unspecified; F17.220 Nicotine dependence, chewing tobacco, uncomplicated
CPT/HCPCS: 36415; 81003; 81015; 81025; 85025; 96372; 99284; J1885

== ENCOUNTER 2020-01-29 16:48 | Emergency (ER) | payer OTHER ==
[2020-01-29 23:49] LABS: SARS-CoV-2 MS2 Positive; SARS-CoV-2 N Gene Negative; SARS-CoV-2 S Gene Negative; SARS-CoV-2 by NAA Not Detected (NotDetected); SARS-CoV-2 orf1ab Negative
== END 2020-01-29 17:21 | disposition home or self-care (01) ==
LOC: ERS 16:48
DX: R05 Cough (principal); R09.81 Nasal congestion; J02.9 Acute pharyngitis, unspecified; R43.8 Other disturbances of smell and taste; Z20.828 Contact with and (suspected) exposure to other viral communicable diseases; E66.9 Obesity, unspecified; F17.220 Nicotine dependence, chewing tobacco, uncomplicated
CPT/HCPCS: 87635; 99283; U0003